=== PATIENT | female | born 1965 | race American Indian/Alaskan Native ===

== ENCOUNTER 2025-04-20 20:17 | Inpatient (IN) | payer MEDICAID, SELFPAY ==
[2025-04-20 20:59] VITALS: BP 125/62; PULSE 102; RESP 20; TEMP 36.7; O2SAT 96
[2025-04-20 21:02] VITALS: BMI 49.8
--- NOTE | 2025-04-20 21:16 | EDNOTE_ITS ---
ED Abdominal Pain RME/HPI General Chief Complaint: Abdominal Pain Stated complaint: ABD PAIN Time seen by provider: 04/20/25 21:28 Arrival date/time: 04/20/25 20:17 RME / HPI RME / HPI narrative: See [facility] for Dr. Knott's HPI Documentation. Related Data Home Medications ?Medication ?Instructions ?Recorded ?Confirmed empagliflozin 25 mg tablet 25 mg PO QDAY 04/21/2503/30 (Jardiance) lisinopril 5 mg tablet 5 mg PO QDAY 04/21/25 metformin 1,000 mg tablet 1,000 mg PO BID 04/21/25 sitagliptin phosphate 100 mg 100 mg PO QDAY 04/21/25 1 06/22/24 tablet (Januvia) Previous Rx's ?Medication ?Instructions ?Recorded ascorbic acid (vitamin C) 250 mg 500 mg (2 x 250 mg) P O BID #60 tabs 04/24/25 tablet (Vitamin C) docusate sodium 100 mg capsule 100 mg PO BID #60 caps 04/24/25 hydrocodone 5 mg-acetaminophen 325 1 tab PO Q6H PRN pa in (scale score 04/24/25 mg tablet 7-10) #15 tabs zinc sulfate 50 mg zinc (220 mg) 220 mg (4.4 x 50 mg z inc (220 mg)) 04/24/25 capsule PO QDAY #30 caps Allergies Allergy/AdvReac Type Severity Reaction Status Date / Time No Known Allergies Allergy Verified 04/20/25 22:39 Review of Systems Review of Systems Systems Reviewed: All systems reviewed, normal except as documented Past Medical History Past Medical History GASTROINTESTINAL: Positive Gastrointestinal Disorders (Umbilical Hernia) ED Exam Narrative Physical exam: See [facility] for Dr. Knott's Physical Exam Documentation. Course Quality Measures none Orders Category Date Time Status COVID-19 Screening Questionnaire NOW Care 04/21/25 02:[address] Screening NOW Care 04/20/25 21:46 Completed Decision to Admit X1 Care 04/21/25 02:00 Completed Saline [Insert IV] NOW Care 04/20/25 21:45 Completed Straight [In and Out Catheter] X1 Care 04/20/25 21:45 Completed Consult to General Surgery Stat Cons 04/21/25 01:[address] abdomen pelvis w con Stat Exams 04/20/25 21:46 Completed US gall bladder Stat Exams 04/20/25 21:46 Completed ABG [Arterial Blood Gas] Stat Lab 04/20/25 23:39 Completed Amylase Stat Lab 04/20/25 21:58 Completed Beta Hydroxybutyrate Stat Lab 04/20/25 21:58 Completed Bilirubin,Direct Stat Lab 04/20/25 21:58 Completed Blood Culture (Lab) Stat Lab 04/20/25 22:27 Results C-Reactive Protein Stat Lab 04/20/25 21:58 Completed CBC Stat Lab 04/20/25 21:58 Completed CMP [Comprehensive Metabolic Panel] Stat Lab 04/20/25 21:58 Completed Hemoglobin A1C [Glycohemoglobin w (eAG)] Stat Lab 04/20/25 21:58 Completed Lactate (Lactic Acid) Stat Lab 04/20/25 21:58 Completed Lactic Acid, 3 HR Stat Lab 04/21/25 01:40 Completed Lipase Stat Lab 04/20/25 21:58 Completed Magnesium Stat Lab 04/20/25 21:58 Completed Procalcitonin Stat Lab 04/20/25 21:58 Completed Sed Rate (ESR) Stat Lab 04/20/25 21:58 Completed TSH [Thyroid Stimulating Hormone] Stat Lab 04/20/25 21:58 Completed UA, C/S IF [Urinalysis, C/S if Indicated] Stat Lab 04/20/25 21:58 Completed VBG [Venous Blood Gas] Stat Lab 04/20/25 21:58 Completed Famotidine Inj [Pepcid Inj] Med 04/20/25 21:45 Discontinued 20 mg IVP X1 ONE Insulin Regular Med 04/20/25 23:19 Discontinued 8 unit IV X1 ONE Ketorolac Inj [Toradol Inj] Med 04/20/25 21:45 Discontinued 30 mg IVP X1 ONE Morphine* Inj Med 04/20/25 21:45 Discontinued 4 mg IV X1 ONE Ondansetron Inj [Zofran Inj] Med 04/20/25 21:45 Discontinued 4 mg IVP X1 ONE Pantoprazole Inj [Protonix Inj] Med 04/20/25 21:45 Discontinued 40 mg IVP X1 ONE Sodium Chloride 0.9% 1000 ml [Ns] 1,000 ml Med 04/20/25 21:45 Discontinued IV 999 mls/hr Sodium Chloride 0.9% 1000 ml [Ns] 1,000 ml Med 04/20/25 23:19 Discontinued IV 999 mls/hr cefTRIAXone/D5w 1gm IV premix [Rocephin/D5w 1gm IV Med 04/20/25 22:56 Discontinued premix] 1 gm in 50 ml IV X1 metroNIDAZOLE/NS 500 MG IVPB [Flagyl 500 mg IV] Med 04/20/25 22:56 Discontinued 500 mg in 100 ml IV X1 Vital Signs Vital signs: Vital Signs Temperature 98.1 F 04/20/25 20:59 Pulse Rate 102 H 04/20/25 20:59 Respiratory Rate 20 04/20/25 20:59 Blood Pressure 125/62 04/20/25 20:59 Pulse Oximetry (%) 96 04/20/25 20:59 Oxygen Delivery Method Room Air 04/20/25 20:59 Abdominal Pain MDM MDM Narrative MDM Narrative:: This section includes all my notes and documentations, including HPI, PE, and ED course. [place] Knott MD HPI: 59 y/o female with Hx of Chronic Umbilical Hernia presents with severe abdominal pain and vomiting x 12 hours. No other complaints. ROS: All negative except as documented in HPI. Physical Exam: General: Alert and oriented. No acute distress when remaining still. Eyes: Conjunctivae and lids clear. ENT: No nasal congestion. Neck: Supple. Heart: RRR. Lungs: No respiratory distress. Good air movement. No rhonchi, wheezing, rales. Abdomen: Soft and nontender. Normal bowel sounds. No distension. No rebound or guarding. Back: No CVA tenderness. Skin: Warm and dry. Neuro: Alert and oriented X 3. I reviewed all diagnostic test results: My review of the Abdomen/Pelvis CT report is: SBO with incarcerated/strangulated bowel in umbilical hernia. My review of the Gallbladder US report is: Cholelithiasis. Blood/urine tests remarkable for WBC 21.7, ESR 62, LA 4.2, and CRP 9.1. At this point, diagnoses include: SBO Incarcerated Hernia Treatment here included: IVF Toradol 30 mg IV Morphine 4 mg IV Zofran 4 mg IV Flagyl 500 mg IV Rocephin 1 G IV I discussed the case with our general surgeon, Dr. Lewis, and our Hospitalist. About the presentation and exam and diagnostics and treatments here. And need of further care in the hospital. Will accept the patient. Sal[place] Knott MD Patient data External records reviewed:: [facility] previous records (No prior ED records available for review.) Clinical information provided by:: patient Social determinants that could affect healthcare access:: none Patient has the following chronic illnesses:: Umbilical Hernia How is presenting disease/condition affected by chronic disease/condition?: exacerbated by Evaluation data The following diagnostics were reviewed and interpreted by me:: lab results and radiology exam(s) Lab and/or radiology exams considered but not ordered:: None Interpretation Summary: I reviewed all diagnostic test results: My review of the Abdomen/Pelvis CT report is: SBO with incarcerated/strangulated bowel in umbilical hernia. My review of the Gallbladder US report is: Cholelithiasis. Blood/urine tests remarkable for WBC 21.7, ESR 62, LA 4.2, and CRP 9.1. Medications / Prescriptions Medications or Prescriptions considered but not ordered:: None Medication administrations:: Medication Administration History Discontinued Medications Acetaminophen (Acetaminophen 325 Mg Tablet) 650 mg PO Q6HR PRN PRN Reason: Fever > 100.4 or pain 1-3 Stop: 05/23/25 00:02 Last Admin: 04/24/25 10:26 Dose: 650 mg Documented By: Admin: 04/23/25 08:31 Dose: 650 mg Documented By: Admin: 04/23/25 00:14 Dose: 650 mg Documented By: DAMON Ascorbic Acid (Ascorbic Acid 250 Mg Tablet) 500 mg PO BID [facility] Stop: 05/21/25 20:59 Last Admin: 04/24/25 08:34 Dose: 500 mg Documented By: Admin: 04/23/25 21:09 Dose: 500 mg Documented By: Admin: 04/23/25 08:28 Dose: 500 mg Documented By: Admin: 04/22/25 20:10 Dose: 500 mg Documented By: Admin: 04/22/25 08:07 Dose: 500 mg Documented By: Admin: 04/21/25 21:44 Dose: 500 mg Documented By: Cefazolin Sodium (Cefazolin Inj 1 Gm Vial) Confirm Administered Dose 3 gm .ROUTE .STK-MED ONE Stop: 04/21/25 12:13 Dexamethasone Sodium Phosphate (Dexamethasone Sod Phos Inj 10 Mg/Ml Vial) Confirm Administered Dose 10 mg .ROUTE .STK-MED ONE Stop: 04/21/25 11:00 Dextrose (Dextrose 50%-Water Inj 50 Ml Syringe) 25 ml IV Q15MIN PRN PRN Reason: BG 50-70 responsive npo pt Stop: 05/21/25 02:02 Dextrose (Dextrose 50%-Water Inj 50 Ml Syringe) 50 ml IV Q15MIN PRN PRN Reason: BG <50 OR BG <70 & pt unresponsive Stop: 05/21/25 02:02 Docusate Sodium (Docusate Sod 100 Mg Capsule) 100 mg PO BID KSENIA; Protocol Stop: 05/21/25 20:59 Last Admin: 04/24/25 08:34 Dose: Not Given Documented By: JACKIE Non-Admin Reason: Patient Refused Admin: 04/23/25 21:09 Dose: 100 mg Documented By: Admin: 04/23/25 08:28 Dose: 100 mg Documented By: Admin: 04/22/25 20:10 Dose: 100 mg Documented By: Admin: 04/22/25 08:12 Dose: Not Given Documented By: JACKIE Non-Admin Reason: Patient Refused Admin: 04/21/25 21:00 Dose: Not Given Documented By: Non-Admin Reason: bm loose 2x Famotidine (Famotidine Inj 10 Mg/Ml Vial 2 Ml) 20 mg IVP X1 ONE Stop: 04/20/25 21:46 Last Admin: 04/20/25 22:55 Dose: 20 mg Documented By: EE Fentanyl Citrate (Fentanyl Cit Inj 50 Mcg/Ml Amp 2ml) 25 mcg IVP Q5M PRN PRN Reason: PAIN SCALE 1-3 (mild Stop: 04/21/25 12:59 Fentanyl Citrate (Fentanyl Cit Inj 50 Mcg/Ml Amp 2ml) Confirm Administered Dose 100 mcg .ROUTE .STK-MED ONE Stop: 04/21/25 10:59 Glucagon (Glucagon Inj 1 Mg Vial) 1 mg IM Q15MIN PRN PRN Reason: BG <70, and no IV access Hydromorphone HCl (Hydromorphone Inj 2 Mg/Ml Vial) 0.4 mg IVP Q5M PRN PRN Reason: PAIN SCALE 7-10 (Severe Stop: 04/21/25 12:59 Sodium Chloride (Ns) 1,000 mls @ 999 mls/hr IV .Q1H1M ONE Stop: 04/20/25 22:45 Last Infusion: 04/21/25 00:05 Dose: Infused Documented By: Admin: 04/20/25 22:55 Dose: 999 mls/hr Documented By: MALIKA Ceftriaxone Sodium/Dextrose (Rocephin/D5w 1gm Iv Premix) 1 gm in 50 mls @ 100 mls/hr IV X1 ONE Stop: 04/20/25 23:25 Last Infusion: 04/20/25 23:47 Dose: Infused Documented By: Admin: 04/20/25 23:17 Dose: 100 mls/hr Documented By: CHEMA Metronidazole (Flagyl 500 Mg Iv) 500 mg in 100 mls @ 100 mls/hr IV X1 ONE Stop: 04/20/25 23:55 Last Infusion: 04/21/25 00:44 Dose: Infused Documented By: Admin: 04/20/25 23:38 Dose: 100 mls/hr Documented By: CHEMA Sodium Chloride (Ns) 1,000 mls @ 999 mls/hr IV .Q1H1M ONE Stop: 04/21/25 00:19 Last Infusion: 04/21/25 00:42 Dose: Infused Documented By: Admin: 04/20/25 23:38 Dose: 999 mls/hr Documented By: CHEMA Piperacillin/Tazobactam/Dextrose (Zosyn) 3.375 gm in 50 mls @ 12.5 mls/hr IV Q8HR [facility]; Protocol Stop: 04/28/25 02:14 Last Admin: 04/24/25 05:09 Dose: 12.5 mls/hr Documented By: Infusion: 04/24/25 01:09 Dose: Infused Documented By: Admin: 04/23/25 21:09 Dose: 12.5 mls/hr Documented By: Infusion: 04/23/25 18:43 Dose: Infused Documented By: Admin: 04/23/25 14:43 Dose: 12.5 mls/hr Documented By: Infusion: 04/23/25 09:02 Dose: Infused Documented By: Admin: 04/23/25 05:02 Dose: 12.5 mls/hr Documented By: Infusion: 04/23/25 01:28 Dose: Infused Documented By: Admin: 04/22/25 21:28 Dose: 12.5 mls/hr Documented By: Infusion: 04/22/25 17:12 Dose: Infused Documented By: Admin: 04/22/25 13:12 Dose: 12.5 mls/hr Documented By: Infusion: 04/22/25 09:16 Dose: Infused Documented By: Admin: 04/22/25 05:16 Dose: 12.5 mls/hr Documented By: Infusion: 04/22/25 01:47 Dose: Infused Documented By: Admin: 04/21/25 21:47 Dose: 12.5 mls/hr Documented By: Admin: 04/21/25 14:10 Dose: Not Given Documented By: CRISTI Non-Admin Reason: Not In Room Sodium Chloride (Ns) 1,000 mls @ 999 mls/hr IV .Q1H1M ONE Stop: 04/21/25 03:08 Last Infusion: 04/21/25 03:40 Dose: Infused Documented By: Admin: 04/21/25 02:33 Dose: 999 mls/hr Documented By: CHEMA Piperacillin/Tazobactam/Dextrose (Zosyn) 3.375 gm in 50 mls @ 100 mls/hr IV X1 ONE; Protocol Stop: 04/21/25 02:44 Last Infusion: 04/21/25 03:05 Dose: Infused Documented By: Admin: 04/21/25 02:35 Dose: 100 mls/hr Documented By: CHEMA Acetaminophen (Ofirmev Inj) Confirm Administered Dose 100 mls @ ud IV .STK-MED ONE Stop: 04/21/25 12:07 Insulin Degludec (Insulin Degludec 5 Unit/0.05 Ml (Per 5 Units)) 10 unit SC X1 ONE Stop: 04/21/25 03:41 Last Admin: 04/21/25 04:30 Dose: 10 unit Documented By: SPENCER Co-signed By: Insulin Human Lispro (Insulin Lispro (Admelog) 1 Unit/0.01 Ml Unit) 0 unit SC Q6H KSENIA; Protocol Stop: 05/21/25 02:14 Last Admin: 04/22/25 07:46 Dose: Not Given Documented By: LS Non-Admin Reason: Per Protocol Admin: 04/22/25 02:15 Dose: Not Given Documented By: ME Non-Admin Reason: Per Protocol Admin: 04/21/25 19:57 Dose: 1 unit Documented By: Co-signed By: LEANDRA Admin: 04/21/25 14:15 Dose: Not Given Documented By: CRISTI Non-Admin Reason: Not In Room Admin: 04/21/25 07:52 Dose: 2 unit Documented By: CRISTI Co-signed By: marcy Admin: 04/21/25 02:41 Dose: 2 unit Documented By: CHEMA Co-signed By: SE Insulin Human Lispro (Insulin Lispro (Admelog) 1 Unit/0.01 Ml Unit) 0 unit SC ACHS [facility]; Protocol Stop: 05/22/25 11:29 Last Admin: 04/24/25 11:44 Dose: Not Given Documented By: LS Non-Admin Reason: Per Protocol Admin: 04/24/25 07:33 Dose: Not Given Documented By: LS Non-Admin Reason: Per Protocol Admin: 04/23/25 20:37 Dose: Not Given Documented By: CG Non-Admin Reason: Per Protocol Admin: 04/23/25 17:30 Dose: Not Given Documented By: MR Non-Admin Reason: Per Protocol Admin: 04/23/25 11:56 Dose: Not Given Documented By: MR Non-Admin Reason: Per Protocol Admin: 04/23/25 07:44 Dose: Not Given Documented By: MR Non-Admin Reason: Per Protocol Admin: 04/22/25 20:06 Dose: 1 unit Documented By: DAMON Co-signed By: JOSÉ LUIS Admin: 04/22/25 17:00 Dose: Not Given Documented By: LS Non-Admin Reason: Per Protocol Admin: 04/22/25 11:29 Dose: Not Given Documented By: LS Non-Admin Reason: Per Protocol Insulin Human Regular (Insulin Hum Regular 1 Unit/0.01 Ml (Per Unit)) 8 unit IV X1 ONE Stop: 04/20/25 23:20 Last Admin: 04/20/25 23:37 Dose: 8 unit Documented By: CHEMA Co-signed By: EE Ketorolac Tromethamine (Ketorolac Inj 30 Mg/Ml Vial) 30 mg IVP X1 ONE Stop: 04/20/25 21:46 Last Admin: 04/20/25 22:55 Dose: 30 mg Documented By: EE Ketorolac Tromethamine (Ketorolac Inj 30 Mg/Ml Vial) Confirm Administered Dose 30 mg .ROUTE .STK-MED ONE Stop: 04/21/25 11:00 Magnesium Hydroxide (Milk Of Magnesia Susp 30 Ml Udc) 30 ml PO X1 ONE; Protocol Stop: 04/23/25 10:16 Last Admin: 04/23/25 12:24 Dose: 30 ml Documented By: MR Midazolam HCl (Midazolam Inj 1 Mg/Ml Vial 2 Ml) Confirm Administered Dose 2 mg .ROUTE .STK-MED ONE Stop: 04/21/25 11:00 Morphine Sulfate (Morphine Sulf Inj 4 Mg/Ml Vial) 4 mg IV X1 ONE Stop: 04/20/25 21:46 Last Admin: 04/20/25 22:55 Dose: 4 mg Documented By: EE Morphine Sulfate (Morphine Sulf Inj 4 Mg/Ml Vial) 2 mg IVP Q2H PRN PRN Reason: PAIN SCALE 4-10(Mod-Sev Stop: 04/26/25 02:02 Last Admin: 04/22/25 13:39 Dose: 2 mg Documented By: Admin: 04/22/25 10:40 Dose: 2 mg Documented By: Admin: 04/22/25 08:06 Dose: 2 mg Documented By: Admin: 04/22/25 02:02 Dose: 2 mg Documented By: Admin: 04/21/25 06:05 Dose: 2 mg Documented By: SPENCER Morphine Sulfate (Morphine Sulf Inj 4 Mg/Ml Vial) 3 mg IV Q5M PRN PRN Reason: PAIN SCALE 4-6 (Moderate Stop: 04/21/25 12:59 Ondansetron HCl (Ondansetron Inj 2 Mg/Ml Inj 2 Ml) 4 mg IVP X1 ONE; Protocol Stop: 04/20/25 21:46 Last Admin: 04/20/25 22:54 Dose: 4 mg Documented By: EE Ondansetron HCl (Ondansetron Inj 2 Mg/Ml Inj 2 Ml) 4 mg IVP Q6H PRN; Protocol PRN Reason: NAUSEA OR VOMITING Stop: 05/21/25 02:02 Last Admin: 04/21/25 04:26 Dose: 4 mg Documented By: SPENCER Ondansetron HCl (Ondansetron Inj 2 Mg/Ml Inj 2 Ml) 4 mg IVP X1 ONE Stop: 04/21/25 11:00 Last Admin: 04/21/25 14:22 Dose: 4 mg Documented By: LJ Ondansetron HCl (Ondansetron Inj 2 Mg/Ml Inj 2 Ml) Confirm Administered Dose 4 mg .ROUTE .STK-MED ONE Stop: 04/21/25 11:00 Pantoprazole Sodium (Pantoprazole Inj 40 Mg Vial) 40 mg IVP X1 ONE Stop: 04/20/25 21:46 Last Admin: 04/20/25 22:54 Dose: 40 mg Documented By: MALIKA Phenylephrine HCl (Phenylephrine Inj In Ns 100 Mcg/Ml 10 Ml Syringe) Confirm Administered Dose 1,000 mcg .ROUTE .STK-MED ONE Stop: 04/21/25 12:42 Propofol (Propofol Inj 10 Mg/Ml Vial 20 Ml) Confirm Administered Dose 200 mg IV .STK-MED ONE Stop: 04/21/25 10:59 Rocuronium [place] (Rocuronium Inj 10 Mg/Ml Vial 10 Ml) Confirm Administered Dose 100 mg .ROUTE .STK-MED ONE Stop: 04/21/25 11:00 Sennosides (Senna Tablet) 1 tab PO X1 ONE; Protocol Stop: 04/23/25 09:41 Last Admin: 04/23/25 12:24 Dose: 1 tab Documented By: Sugammadex Sodium (Sugammadex Inj 100 Mg/Ml 2ml Vial) Confirm Administered Dose 200 mg .ROUTE .STK-MED ONE Stop: 04/21/25 11:00 Zinc Sulfate (Zinc Sulfate 220 Mg Capsule) 220 mg PO QDAY KSENIA Stop: 05/22/25 08:59 Last Admin: 04/24/25 08:34 Dose: 220 mg Documented By: Admin: 04/23/25 08:28 Dose: 220 mg Documented By: Admin: 04/22/25 08:07 Dose: 220 mg Documented By: JACKIE Treatment here included: IVF Toradol 30 mg IV Morphine 4 mg IV Zofran 4 mg IV Flagyl 500 mg IV Rocephin 1 G IV Consultations Consultation(s) initiated? (list below): Yes Consultation #1 (Physician, Specialty, Details): I discussed the case with our general surgeon, Dr. Lewis, and our Hospitalist. About the presentation and exam and diagnostics and treatments here. And need of further care in the hospital. Will accept the patient. Diagnosis Differential diagnosis abdominal pain: acute appendicitis, calculus of kidney, constipation, diverticulitis, endometriosis, gastroenteritis, pancreatitis and small bowel obstruction Most likely diagnosis given after review of the tests above:: SBO Incarcerated Hernia Admission Indicated Admission indicated?: indicated Explain why admission is indicated or not indicated:: SBO Incarcerated Hernia Admission Request Was there a request for admission?: Yes Admission Attestation Admission request attestation: Discussed case with Hospitalist service regarding admission. Discussed patients ED course, exam findings, labs, and radiology results. Agreed to accept the patient for admission. Disposition Plan Disposition Plan: Admit Discharge Plan Plan Patient Disposition: Admit Acute Care w/in Hospital Problem List Clinical Impression: SBO (small bowel obstruction), Incarcerated hernia Patient/Caregiver Discharge Instructions Discharge Activity: activity as tolerated
--- NOTE | 2025-04-20 21:46 | XR_ITS ---
Examination: Abdomen sonogram, Limited Date and time of exam: April 20, 2025, 1012 hours INDICATIONS: Right upper abdominal pain and tenderness nausea vomiting beginning 2 days ago Technique: Real-time adams scale transabdominal sonographic images of the upper abdomen obtained. Findings: Multiple gallstones Gallbladder wall 0.5 cm Common bile duct 0.2 cm Pancreatic head 2.4 cm Liver 16 cm fatty infiltration Normal hepatopetal portal venous flow Patent IVC IMPRESSION: Cholelithiasis Abnormally thickened gallbladder wall, consider HIDA scan or MRCP follow-up to confirm cholecystitis
--- NOTE | 2025-04-20 21:46 | XR_ITS ---
Examination: CT abdomen with intravenous contrast CT pelvis with intravenous contrast 2-D coronal reconstructions 2-D sagittal reconstructions Date and time of exam: April 21, 2025, 0019 hours INDICATIONS: Severe abdominal pain with nausea onset today. CTDI: vol (mGy) 16.8 DLP: (mGycm) 970 Technique: Multiple axial sections of the abdomen and pelvis have been obtained. 64 slice high-resolution scanner used. 3 mm axial sections have been obtained, post intravenous injection 60 cc [id number] 2-D sagittal, coronal reconstructions obtained. Low dose protocols were performed. One or more of the following dose reduction techniques were used; automated exposure control, adjustment of the mA and/or KV according to patient size, use of iterative reconstruction technique. Findings: Cirrhosis, liver nodular in contour Splenomegaly Cholelithiasis No pancreatic mass No renal or ureteral calculi Small bowel obstruction, multiple small bowel loops incarcerated in umbilical hernia defect, large hernia sac No pelvic mass Urinary bladder intact Advanced degenerative disc disease L5-S1 Colonic diverticulosis, mild inflammation about the diverticula in the sigmoid region, the inflamed colon is immediately adjacent to the upper margin of the urinary bladder IMPRESSION: Cirrhosis, splenomegaly Cholelithiasis Small bowel obstruction secondary to incarcerated small bowel in an umbilical hernia defect Suspicious for mild sigmoid diverticulitis, possible fistulous communication between the diverticula and the bladder, clinical correlation advised
[2025-04-20 22:10] LABS: Collection Type, Urine Clean Catch
[2025-04-20 22:11] LABS: Base Excess, Venous 2 (-3-3); Basophils # (Auto) 0.1 Thou/mm3 (0.0-0.2); Basophils % (Auto) 1 % (0-2.5); Eosinophils # (Auto) 0.0 Thou/mm3 (0.0-0.5); Eosinophils % (Auto) 0 % (0-10); Hematocrit 47.1 % (36.0-46.0); Hemoglobin 16.0 g/dL (12.0-16.0); Immature Granulocytes Auto 0.09 Thou/mm3 (0.00-0.00); Lymphocytes # (Auto) 2.5 Thou/mm3 (1.0-4.8); Lymphocytes % (Auto) 11 % (10-50); Mean Corpuscular HGB Conc 34.0 g/dl (31.0-37.0); Mean Corpuscular Hemoglobin 30.4 pg (25.0-35.0); Mean Corpuscular Volume 90 fL (80-100); Monocytes # (Auto) 1.3 Thou/mm3 (0.0-0.8); Monocytes % (Auto) 6 % (0-12); Neutrophils # (Auto) 17.7 Thou/mm3 (1.8-7.7); Neutrophils % (Auto) 82 % (37-80); Nucleated Red Blood Cell # 0.00 Thou/mm3 (0.00-0.00); Nucleated Red Blood Cell % 0 /100 WBC (0); O2 Saturation, Venous 74 % (96-97); PCO2, Venous 43 mmHg (36-56); PO2, Venous 40 mmHg (15-58); Platelet Count 336 Thou/mm3 (140-440); RDW Standard Deviation 41.7 fL (36.4-46.3); Red Blood Count 5.26 Miln/mm3 (4.00-5.20); White Blood Count 21.7 Thou/mm3 (3.6-11.0); pH, Venous 7.41 (7.33-7.66)
[2025-04-20 22:20] LABS: Beta Hydroxybutyrate 1.2 mmol/L (<0.6)
[2025-04-20 22:26] LABS: Glucose Estimated Average 209 mg/dL (80-131); Hemoglobin A1C 8.9 % Hgb (4.8-6.0)
[2025-04-20 22:29] LABS: Bacteria,Urine Rare; Bilirubin,Urine Negative (Negative); Blood,Urine Negative (Negative); Budding Yeast,Urine Present; Clarity,Urine Clear (Clear/Hazy); Color,Urine Yellow (Lt Yel-Yel); Culture Indicated,Urine Not Indicated; Glucose, Urine 4+ (Negative); Ketones,Urine 2+ (Negative); Leukocyte Esterase,Urine Negative (Negative); Nitrite,Urine Negative (Negative); PH,Urine 6.0 (5.0-7.0); Protein,Urine Negative (Neg - Trace); RBC,Urine 14 /hpf (0-3); Specific Gravity,Urine 1.044 (1.001-1.035); Squamous Epithelial Cell,Urine 2 /hpf (0-5); Urobilinogen,Urine Negative mg/dL (0.0-1.0); WBC,Urine 3 /hpf (0-5)
[2025-04-20 22:36] LABS: Lactate (Lactic Acid) 4.2 mMol/L (0.4-2.0)
[2025-04-20 22:39] LABS: Sed Rate (ESR) 62 mm/hr (0-30)
[2025-04-20 22:43] LABS: Alanine Aminotransferase 23 U/L (10-49); Albumin, Serum 5.1 gm/dL (3.5-5.0); Albumin/Globulin Ratio 1.3 (1.2-2.2); Alkaline Phosphatase 106 U/L (46-116); Amylase 52 U/L (30-118); Anion Gap 19 (7-16); Aspartate Amino Transferase 34 U/L (0-34); BUN/Creatinine Ratio 18 Ratio (12-20); Bilirubin,Direct 0.2 mg/dL (0.0-0.3); Bilirubin,Total 0.5 mg/dL (0.3-1.2); Blood Urea Nitrogen 21 mg/dL (9-23); Calcium 10.1 mg/dL (8.3-10.6); Calcium (Corrected) 10.1 mg/dL (8.5-10.1); Carbon Dioxide 24.6 mMol/L (20.0-31.0); Chloride 97 mMol/L (98-107); Creatinine (Component) 1.2 mg/dL (0.6-1.3); Estimated Creatinine Clearance 58.6 mL/min (>60); Globulin 4.0 gm/dL (2.3-3.5); Glucose 326 mg/dL (74-106); Lipase 35 U/L (12-53); Magnesium 2.4 mg/dL (1.6-2.6); Osmolality,Calculated 297 (275-295); Potassium 4.5 mMol/L (3.4-5.1); Sodium 141 mMol/L (136-145); Thyroid Stimulating Hormone 4.17 uIU/mL (0.55-4.78); Total Protein 9.1 gm/dL (5.7-8.2); eGFR 52 See Note
[2025-04-20 22:51] LABS: C-Reactive Protein 2.5 mg/dL (0.0-0.9); Procalcitonin 0.14 ng/ml (0.0-0.49)
[2025-04-20] MEDS: ONDANSETRON INJ 2 MG/ML INJ 2 ML 4 MG IVP (22:54)
[2025-04-20] MEDS: MORPHINE SULF INJ 4 MG/ML VIAL IV (22:55)
[2025-04-20] MEDS: SODIUM CHLORIDE 0.9% 1000 ML 1,000 ML 999 ML IV ×2 (22:55→23:38)
[2025-04-20] MEDS: FAMOTIDINE INJ 10 MG/ML VIAL 2 ML 20 MG IVP (22:55)
[2025-04-20] MEDS: KETOROLAC INJ 30 MG/ML VIAL IVP (22:55)
[2025-04-20 23:02] VITALS: BP 125/67; PULSE 103; RESP 18; TEMP 37.1; O2SAT 89
[2025-04-20 23:12] VITALS: PULSE 99; RESP 20; O2SAT 96
[2025-04-20] MEDS: cefTRIAXone/D5w 1gm IV premix 1 GM/50 ML BAG IV (23:17)
[2025-04-20] MEDS: INSULIN HUM REGULAR 1 UNIT/0.01 ML (PER UNIT) 8 UNIT IV (23:37)
[2025-04-20] MEDS: metroNIDAZOLE/NS 500 MG IVPB 500 MG/100 ML BAG 100 MG IV (23:38)
[2025-04-21] VITALS (17 sets, daily range): BP systolic 98–137; BP diastolic 61–92; PULSE 86–119; RESP 15–96; TEMP 36–36.9; O2SAT 94–99; BMI 51.0; BMI 51.2
[2025-04-21 00:03] LABS: Base Excess 1 (-3-3); HCO3 26 mEq/L (20-26); Inspired Oxygen, FIO2 32 %; O2 Saturation 95 % (91-98); PCO2 44 mmHg (32.0-48.0); PO2 77 mmHg (83-108); pH, Arterial 7.38 (7.35-7.45)
[2025-04-21 00:04] LABS: Allen Test Performed/OK; Inspired O2, VO2 Liters 3 L/min; Puncture Site Right Radial
--- NOTE | 2025-04-21 01:14 | PRELIM_ITS ---
CT scan of the abdomen and pelvis with intravenous contrast (axial sections with sagittal and coronal reformats) April 21, 2025 at 0016 hours Clinical History: Severe abdominal pain. Comparison: None available at the time of this report. Findings: Mild bronchiectasis. Bilateral lower lobes atelectasis. The pancreas, kidneys and adrenals are unremarkable. Gallstones without CT evidence of acute cholecystitis. No biliary duct dilation. Splenomegaly with clinical diameter of 13.7 cm. Mild irregular liver margins. Dilated small bowel loops measuring up to 4.3 cm with air-fluid levels within an transition point at the level of a bowel containing anterior abdominal hernia. No evidence of appendicitis. There is no mesenteric or retroperitoneal adenopathy. The urinary bladder is unremarkable. There is no free fluid or free air. Degenerative changes of the imaged portions of the spine. Chronic multilevel disc disease. No acute fractures. Focal thickening of the sigmoid colon associated with peripheral fat stranding, no perforation, no collections, no fat plane between the urinary bladder and the inflamed sigmoid colon. The uterus and ovaries are within normal limits. Impression: 1. Small bowel obstruction with transition point at the level of the incarcerated/strangulated bowel containing anterior abdominal hernia. Surgical consult is recommended. 2. Diverticulitis of the sigmoid colon with possible colovesicular fistula. 3. Probable cirrhosis. 4. Mild splenomegaly. 5. Bronchiectasis. Discussion Details: Results verbally communicated to : Dr. Knott at 01:01 AM 04/21/2025 Report Electronically Signed By: Aiden Velasco 04/21/2025 1:13:11 AM [EST]
[2025-04-21 01:30] LABS: Reflex Lactate? Y
[2025-04-21 01:49] LABS: Lactic Acid, 3 HR 1.8 mMol/L (0.4-2.0)
--- NOTE | 2025-04-21 02:10 | PD.RESHP ---
Documentation for date of: 04/21/25 HPI History of Present Illness Chief complaint: Abdominal pain and nausea History of present illness: 59-year-old female with past medical history of hypertension, DM2, and umbilical hernia comes into the ED with chief complaints of abdominal pain and nausea over the last 24 hours. Patient states that she has had her umbilical hernia for many years now and she is not seen a doctor for it because she was afraid of surgery and she was trying to avoid it at this time. She stated that since yesterday morning she was feeling unwell and was having a lot of pain and it became unbearable therefore she decided to come to the ER. Patient also stated that she had multiple episodes of vomiting, but no gross blood seen in the vomit. She also stated that her last bowel movement was 04/19/2025 and there was no blood. Otherwise she has no other complaints at this time and denies any chest pain, burning sensation urination, headache, dizziness, cough, or blood in the stools. ED course: Initially patient came in afebrile and normotensive. Initial results were relevant for leukocytosis, high anion gap without metabolic acidosis, hyperglycemia, lactic acidosis, elevated CRP and elevated hydroxybutyrate butyrate. Patient's urine also shows some ketones and some rare bacteria. Initial imaging included gallbladder ultrasound which showed some cholelithiasis and some thickened gallbladder wall, common bile duct was not dilated. Patient's abdomen/pelvis CT with contrast also showed SBO with an incarcerated bowel containing anterior abdominal hernia as well as some diverticulitis. In the ED patient received ceftriaxone and metronidazole as well as 2 L of IV fluids and insulin 8 units x 1. ED physician also spoke with general surgeon given incarcerated hernia and general surgeon stated to admit the patient and keep patient n.p.o. for possible surgical intervention. PMH: Hypertension, DM2, and umbilical hernia Social Hx: Denies any drugs, smoking, alcohol Surgical Hx: None Allergies: NKDA Review of Systems Review of Systems Systems Reviewed: All systems reviewed, normal except as documented Past Medical History Past Medical History Comments PMH COMMENT: PMH: Hypertension, DM2, and umbilical hernia Social Hx: Denies any drugs, smoking, alcohol Surgical Hx: None Allergies: NKDA Exam Vital Signs Temp Pulse Resp BP Pulse Ox O2 Del Method O2 Flow Rate 98.7 F 99 20 125/67 96 Nasal Cannula 2 04/20/25 23:02 04/20/25 23:12 04/20/25 23:12 04/20/25 23:02 04/20/25 23:12 04/20/25 23:12 04/20/25 23:12 Narrative Exam Gen: A&O X 3, mild discomfort due to pain, obese HEENT: NCAT, EOMI, Pupils reactive PHILIP, not icteric. External ears normal. No rhinorrhea. Moist mucous membranes. Neck: Supple, full range of motion, no observable masses, No meningeal sign. Lungs: No Respiratory distress, clear bilateral. CV: RRR, no murmurs. Abdomen: distended and firm, mild tenderness on L side. Non reducible umbilical hernia with mild pain with palpation. MSK: No joint swelling, no redness, peripheral pulses presents, no peripheral edema, good capillary refill. Skin: No rashes, petechiae, lesions. Neuro: No focal neurological deficits appreciated, sensory and motor intact. Psych: Anxious appearing Results: Labs 04/20/25 21:58 04/21/25 01:40 Labs: Short CBC 04/20/25 Range/Units 21:58 WBC 21.7 H (3.6-11.0) Thou/mm3 Hgb 16.0 (12.0-16.0) g/dL Hct 47.1 H (36.0-46.0) % Plt Count 336 (140-440) Thou/mm3 BMP 04/20/25 21:58 Sodium 141 Potassium 4.5 Chloride 97 L Carbon Dioxide 24.6 BUN 21 Creatinine 1.2 Glucose 326 H Calcium 10.1 Liver Function 04/20/25 Range/Units 21:58 Total Bilirubin 0.5 (0.3-1.2) mg/dL Direct Bilirubin 0.2 (0.0-0.3) mg/dL AST 34 (0-34) U/L ALT 23 (10-49) U/L Alkaline Phosphatase 106 (46-116) U/L Albumin 5.1 H (3.5-5.0) gm/dL Urine 04/20/25 Range/Units 21:58 Urine Color Yellow (Lt Yel-Yel) Urine Clarity Clear (Clear/Hazy) Urine pH 6.0 (5.0-7.0) Ur Specific [place] 1.044 H (1.001-1.035) Urine Protein Negative (Neg - Trace) Urine Glucose (UA) 4+ A (Negative) ABG Interpretation ABG results: 04/20/25 04/20/25 21:58 23:39 ABG pH 7.38 ABG pCO2 44 ABG pO2 77 L ABG HCO3 26 ABG O2 Saturation 95 ABG Base Excess 1 VBG pH 7.41 VBG pCO2 43 VBG pO2 40 VBG Base Excess 2 Quality Measures Quality Measures none Medications Home Medications and Allergies Home Medications ?Medication ?Instructions ?Recorded ?Confirmed ?Type empagliflozin 25 mg tablet 25 mg PO QDAY 04/21/25 04/21/25 History (Jardiance) lisinopril 5 mg tablet 5 mg PO QDAY 04/21/25 04/21/25 History metformin 1,000 mg tablet 1,000 mg PO BID 04/21/25 04/21/25 History sitagliptin phosphate 100 mg 100 mg PO QDAY 04/21/25 04/21/25 History tablet (Januvia) Allergies Allergy/AdvReac Type Severity Reaction Status Date / Time No Known Allergies Allergy Verified 04/20/25 22:39 Visit Medications Dextrose (Dextrose 50%-Water Inj 50 Ml Syringe) 25 ml IV Q15MIN PRN PRN Reason: BG 50-70 responsive npo pt Stop: 05/21/25 02:02 Dextrose (Dextrose 50%-Water Inj 50 Ml Syringe) 50 ml IV Q15MIN PRN PRN Reason: BG <50 OR BG <70 & pt unresponsive Stop: 05/21/25 02:02 Glucagon (Glucagon Inj 1 Mg Vial) 1 mg IM Q15MIN PRN PRN Reason: BG <70, and no IV access Piperacillin/Tazobactam/Dextrose (Zosyn) 3.375 gm in 50 mls @ 100 mls/hr IV Q6H KSENIA; Protocol Stop: 04/28/25 02:14 Sodium Chloride (Ns) 1,000 mls @ 999 mls/hr IV .Q1H1M ONE Stop: 04/21/25 03:08 Insulin Human Lispro (Insulin Lispro (Admelog) 1 Unit/0.01 Ml Unit) 0 unit SC Q6H KSENIA; Protocol Stop: 05/21/25 02:14 Morphine Sulfate (Morphine Sulf Inj 4 Mg/Ml Vial) 2 mg IVP Q2H PRN PRN Reason: PAIN SCALE 4-10(Mod-Sev Stop: 04/26/25 02:02 Ondansetron HCl (Ondansetron Inj 2 Mg/Ml Inj 2 Ml) 4 mg IVP Q6H PRN; Protocol PRN Reason: NAUSEA OR VOMITING Stop: 05/21/25 02:02 Discontinued Medications Famotidine (Famotidine Inj 10 Mg/Ml Vial 2 Ml) 20 mg IVP X1 ONE Stop: 04/20/25 21:46 Last Admin: 04/20/25 22:55 Dose: 20 mg Sodium Chloride (Ns) 1,000 mls @ 999 mls/hr IV .Q1H1M ONE Stop: 04/20/25 22:45 Last Infusion: 04/21/25 00:05 Dose: Infused Ceftriaxone Sodium/Dextrose (Rocephin/D5w 1gm Iv Premix) 1 gm in 50 mls @ 100 mls/hr IV X1 ONE Stop: 04/20/25 23:25 Last Infusion: 04/20/25 23:47 Dose: Infused Metronidazole (Flagyl 500 Mg Iv) 500 mg in 100 mls @ 100 mls/hr IV X1 ONE Stop: 04/20/25 23:55 Last Infusion: 04/21/25 00:44 Dose: Infused Sodium Chloride (Ns) 1,000 mls @ 999 mls/hr IV .Q1H1M ONE Stop: 04/21/25 00:19 Last Infusion: 04/21/25 00:42 Dose: Infused Insulin Human Regular (Insulin Hum Regular 1 Unit/0.01 Ml (Per Unit)) 8 unit IV X1 ONE Stop: 04/20/25 23:20 Last Admin: 04/20/25 23:37 Dose: 8 unit Ketorolac Tromethamine (Ketorolac Inj 30 Mg/Ml Vial) 30 mg IVP X1 ONE Stop: 04/20/25 21:46 Last Admin: 04/20/25 22:55 Dose: 30 mg Morphine Sulfate (Morphine Sulf Inj 4 Mg/Ml Vial) 4 mg IV X1 ONE Stop: 04/20/25 21:46 Last Admin: 04/20/25 22:55 Dose: 4 mg Ondansetron HCl (Ondansetron Inj 2 Mg/Ml Inj 2 Ml) 4 mg IVP X1 ONE; Protocol Stop: 04/20/25 21:46 Last Admin: 04/20/25 22:54 Dose: 4 mg Pantoprazole Sodium (Pantoprazole Inj 40 Mg Vial) 40 mg IVP X1 ONE Stop: 04/20/25 21:46 Last Admin: 04/20/25 22:54 Dose: 40 mg Assessment & Plan Plan 59-year-old female with past medical history of hypertension, DM2, and umbilical hernia was admitted to the hospital on 04/21/2025 due to incarcerated umbilical hernia as well as hyperglycemia. #Incarcerated umbilical hernia #SBO 2/2 above #Intractable nausea and vomiting 2/2 above Patient came in with complaints of abdominal pain and nausea with vomiting for the past day. Patient does have a history of umbilical hernia for the past few years and has not had medical attention for this. Patient is abdomen/post CT with contrast showed an SBO with incarcerated bowel containing anterior abdominal hernia and some diverticulitis. Patient CRP was elevated at 2.5, ESR 62, and WBCs were 21.7 Patient received metronidazole and Rocephin in the ER as well as 2 L of IV fluids. Plan: IV Zosyn 3.375 gm q6hrs Additional 1 L of IV fluids N.p.o. Blood cultures ordered General Surgery consulted, awaiting evaluation for possible surgical procedure #Uncontrolled DM2 #Hyperglycemia Patient's A1c was 8.9 Blood glucose was 326 and some ketones in the urine. Patient's anion gap was 19, but patient also had lactic acidosis with which could have contributed to patient's anion gap as patient did not have metabolic acidosis. Beta-hydroxybutyrate was 1.2 Insulin 8 units x 1 in the ER Plan: Degludec 10 units x1 ISS every 6 hours Additional IV fluids Repeat renal function panel to ensure that patient is not progressing into DKA Hypoglycemia protocol ordered #Lactic acidosis, resolved #High anion gap Patient's anion gap was 19 and patient's lactic acid was 4.2 initially Patient lactic acid did downtrend to 1.8 after 2 L of IV fluids. Plan: Will repeat renal function panel to assess anion gap and ensure the patient is not going to metabolic acidosis and has not progressed into DKA #Cholelithiasis #Cholecystitis? Patient's clinical picture of abdominal pain along with nausea could be indicative of cholecystitis, but given that patient does have an incarcerated hernia patient's clinical picture is due to this. Patient's ultrasound gallbladder showed cholelithiasis as well as gallbladder wall thickening and CBD was 0.2 cm. Plan: There is no IVF Zosyn Will follow-up on morning labs General Surgery consulted, appreciate commendations Disposition: Patient admitted to med/tele. Diet: NPO GI prophylaxis: not indicated DVT prophylaxis: SCD given possible surgical procedure Code: Full Case disclosed with Attending Dr. Rosie Navas PGY2 Disclaimer: Even though this this note was dictated by speech recognition and even though it was carefully revised there may still be minor errors in impregnator carbon products due to voice recognition software. Attending Provider Attestation/Addendum I or my resident physicians have discussed care with the ED physician and I have made the decision to admit. I have discussed and was present for the essential components of the history, physical examination, diagnosis, and treatment plan with the resident. I agree with the patient's care as documented by the resident and amended herein by me. Jarred Velez, DO. Although this document has been carefully reviewed, there may still be some phonetic and other typographical errors. These errors are purely grammatical due to imperfections in the software program and should not be construed in any way to compromise the substance of the patient's medical care during this visit.
[2025-04-21] MEDS: SODIUM CHLORIDE 0.9% 1000 ML 1,000 ML 999 ML IV (02:33)
[2025-04-21] MEDS: PIPER/TAZO 3.375 GM PREMIX 3.375 GM/50 ML BAG IV ×2 (02:35→21:47)
[2025-04-21] MEDS: INSULIN LISPRO (AdmeLOG) 1 UNIT/0.01 ML UNIT SC ×3 (02:41→19:57)
[2025-04-21 02:52] LABS: Base Excess, Venous 1 (-3-3); O2 Saturation, Venous 87 % (96-97); PCO2, Venous 40 mmHg (36-56); PO2, Venous 53 mmHg (15-58); pH, Venous 7.41 (7.33-7.66)
[2025-04-21 02:55] LABS: Albumin, Serum 4.1 gm/dL (3.5-5.0); Anion Gap 14 (7-16); BUN/Creatinine Ratio 17 Ratio (12-20); Blood Urea Nitrogen 15 mg/dL (9-23); Calcium 8.6 mg/dL (8.3-10.6); Calcium (Corrected) 8.6 mg/dL (8.5-10.1); Carbon Dioxide 23.2 mMol/L (20.0-31.0); Chloride 106 mMol/L (98-107); Creatinine (Component) 0.9 mg/dL (0.6-1.3); Estimated Creatinine Clearance 78.2 mL/min (>60); Glucose 257 mg/dL (74-106); Osmolality,Calculated 294 (275-295); Phosphorous 4.1 mg/dL (2.4-5.1); Potassium 4.0 mMol/L (3.4-5.1); Sodium 143 mMol/L (136-145); eGFR > 60 See Note
[2025-04-21] MEDS: ONDANSETRON INJ 2 MG/ML INJ 2 ML 4 MG IVP ×2 (04:26→14:22)
[2025-04-21] MEDS: INSULIN DEGLUDEC 5 UNIT/0.05 ML (PER 5 UNITS) 10 UNIT SC (04:30)
[2025-04-21] MEDS: MORPHINE SULF INJ 4 MG/ML VIAL 2 MG IVP (06:05)
[2025-04-21 07:42] LABS: Basophils # (Auto) 0.1 Thou/mm3 (0.0-0.2); Basophils % (Auto) 1 % (0-2.5); Eosinophils # (Auto) 0.0 Thou/mm3 (0.0-0.5); Eosinophils % (Auto) 0 % (0-10); Hematocrit 42.3 % (36.0-46.0); Hemoglobin 14.3 g/dL (12.0-16.0); Immature Granulocytes Auto 0.04 Thou/mm3 (0.00-0.00); Lymphocytes # (Auto) 0.7 Thou/mm3 (1.0-4.8); Lymphocytes % (Auto) 6 % (10-50); Mean Corpuscular HGB Conc 33.8 g/dl (31.0-37.0); Mean Corpuscular Hemoglobin 31.0 pg (25.0-35.0); Mean Corpuscular Volume 92 fL (80-100); Monocytes # (Auto) 0.8 Thou/mm3 (0.0-0.8); Monocytes % (Auto) 7 % (0-12); Neutrophils # (Auto) 10.0 Thou/mm3 (1.8-7.7); Neutrophils % (Auto) 86 % (37-80); Nucleated Red Blood Cell # 0.00 Thou/mm3 (0.00-0.00); Nucleated Red Blood Cell % 0 /100 WBC (0); Platelet Count 256 Thou/mm3 (140-440); RDW Standard Deviation 43.8 fL (36.4-46.3); Red Blood Count 4.61 Miln/mm3 (4.00-5.20); White Blood Count 11.7 Thou/mm3 (3.6-11.0)
[2025-04-21 08:02] LABS: Alanine Aminotransferase 17 U/L (10-49); Albumin, Serum 4.4 gm/dL (3.5-5.0); Albumin/Globulin Ratio 1.2 (1.2-2.2); Alkaline Phosphatase 84 U/L (46-116); Anion Gap 12 (7-16); Aspartate Amino Transferase 25 U/L (0-34); BUN/Creatinine Ratio 21 Ratio (12-20); Bilirubin,Total 0.5 mg/dL (0.3-1.2); Blood Urea Nitrogen 19 mg/dL (9-23); Calcium 9.0 mg/dL (8.3-10.6); Calcium (Corrected) 9.0 mg/dL (8.5-10.1); Carbon Dioxide 25.0 mMol/L (20.0-31.0); Cardiac Risk Estimate 4.6 RATIO (3.7-5.6); Chloride 108 mMol/L (98-107); Cholesterol 160 mg/dL (132-200); Creatinine (Component) 0.9 mg/dL (0.6-1.3); Estimated Creatinine Clearance 79.3 mL/min (>60); Globulin 3.6 gm/dL (2.3-3.5); Glucose 241 mg/dL (74-106); HDL Cholesterol 35 mg/dL (40-60); LDL Cholesterol,Calculated 93 mg/dL (0-130); Osmolality,Calculated 298 (275-295); Potassium 4.3 mMol/L (3.4-5.1); Sodium 145 mMol/L (136-145); Total Protein 8.0 gm/dL (5.7-8.2); Triglycerides 160 mg/dL (30-150); eGFR > 60 See Note
--- NOTE | 2025-04-21 11:06 | ESPR_ITS ---
<Statement entered by Ashley Anderson MD - 04/26/25 07:57> I reviewed above note and agree with findings and plans. I have also personally examined the patient with medicine team and went over assessment and plan with medical team including rn international and resident physician. Documentation for date of: 04/21/25 Subjective Subjective Interval history: No acute overnight events. Still has diffuse abdominal pain and distention, although no nausea or vomiting. She continued n.p.o. and has been evaluated by general surgery today who plans for EX-LAP today. Denies fever, chills, headaches, chest pain, sob, cough, GI or urinary symptoms. Exam Vital Signs Temp Pulse Resp BP Pulse Ox O2 Del Method O2 Flow Rate 97.2 F 108 H 18 113/70 95 Nasal Cannula 2 04/21/25 08:00 04/21/25 08:00 04/21/25 08:00 04/21/25 08:00 04/21/25 08:00 04/21/25 08:00 04/20/25 23:12 Narrative Exam GENERAL * Obese female, no apparent distress, satting well on 2L nasal cannula. HEENT * NCAT.?[place]. Oral mucosa is moist. Patent Nares NECK * Supple, nontender, no JVD. CHEST * RRR, no m/g/r * CTAB, no w/r/r, symmetrical expansion. ABDOMEN * Firm, distended throughout, but worse on the left side. * Visible large nonreducible umbilical hernia that is painful to deep palpation * Bowel sounds presents EXTREMITIES * No edema/cyanosis.? SKIN * Warm and dry, no jaundice/rashes. NEUROMUSCULAR * No focal neurologic deficits. PSYCHIATRY * Normal mood and affect, cooperative, no SI or HI or hallucinations. Objective Labs 04/21/25 07:22 04/21/25 07:22 Labs: Laboratory Results - last 24 hr 04/20/25 04/20/25 04/21/25 21:58 23:39 01:40 WBC 21.7 H RBC 5.26 H Hgb 16.0 Hct 47.1 H MCV 90 MCH 30.4 MCHC 34.0 RDW Std Deviation 41.7 Plt Count 336 Neut % (Auto) 82 H Lymph % (Auto) 11 [place] % (Auto) 6 Eos % (Auto) 0 Baso % (Auto) 1 Neut # (Auto) 17.7 H Lymph # (Auto) 2.5 [place] # (Auto) 1.3 H Eos # (Auto) 0.0 Baso # (Auto) 0.1 Immature Gran # (Auto) 0.09 H Absolute Nucleated RBC 0.00 Immature Gran % 0 Nucleated RBC % 0 ESR 62 H Puncture Site Right Radial ABG pH 7.38 ABG pCO2 44 ABG pO2 77 L ABG HCO3 26 ABG O2 Saturation 95 ABG Base Excess 1 VBG pH 7.41 7.41 VBG pCO2 43 40 VBG pO2 40 53 VBG O2 Sat (Kahlil) 74 L 87 L VBG Base Excess 2 1 Oxygen Liter Flow 3 FiO2 32 Sodium 141 143 Potassium 4.5 4.0 D Chloride 97 L 106 Carbon Dioxide 24.6 23.2 Anion Gap 19 H 14 BUN 21 15 Creatinine 1.2 0.9 Estim Creat Clear Calc 58.6 L 78.2 eGFR 52 L > 60 BUN/Creatinine Ratio 18 17 Glucose [address] Glu mg/dL 209 H Hemoglobin A1c 8.9 H Calculated Osmolality 297 H 294 Lactic Acid 4.2 H* 1.8 Calcium 10.1 8.6 D Corrected Calcium 10.1 8.6 D Phosphorus 4.1 Magnesium 2.4 Total Bilirubin 0.5 Direct Bilirubin 0.2 AST 34 ALT 23 Alkaline Phosphatase 106 C-Reactive Prot, Quant 2.5 H Total Protein 9.1 H Albumin 5.1 H 4.1 D Globulin 4.0 H Albumin/Globulin Ratio 1.3 Triglycerides Cholesterol LDL Cholesterol, Calc HDL Cholesterol Cholesterol/HDL Ratio Amylase 52 Lipase 35 Beta-Hydroxybutyrate/Acetoacetate 1.2 H Procalcitonin 0.14 TSH 4.17 Ur Collection Type Clean Catch Urine Color Yellow Urine Clarity Clear Urine pH 6.0 Ur Specific [place] 1.044 H Urine Protein Negative Urine Glucose (UA) 4+ A Urine Ketones 2+ A Urine Blood Negative Urine Nitrite Negative Urine Bilirubin Negative Urine Urobilinogen (Auto) Negative Ur Leukocyte Esterase Negative Urine RBC 14 H Urine WBC 3 Ur Squamous Epith Cells 2 Urine Bacteria Rare Urine Yeast (Budding) Present A Ur Culture Indicated? Not Indicated 04/21/25 07:22 WBC 11.7 H D RBC 4.61 Hgb 14.3 Hct 42.3 MCV 92 MCH 31.0 MCHC 33.8 RDW Std Deviation 43.8 Plt Count 256 D Neut % (Auto) 86 H Lymph % (Auto) 6 L [place] % (Auto) 7 Eos % (Auto) 0 Baso % (Auto) 1 Neut # (Auto) 10.0 H Lymph # (Auto) 0.7 L [place] # (Auto) 0.8 Eos # (Auto) 0.0 Baso # (Auto) 0.1 Immature Gran # (Auto) 0.04 H Absolute Nucleated RBC 0.00 Immature Gran % 0 Nucleated RBC % 0 ESR Puncture Site ABG pH ABG pCO2 ABG pO2 ABG HCO3 ABG O2 Saturation ABG Base Excess VBG pH VBG pCO2 VBG pO2 VBG O2 Sat (Kahlil) VBG Base Excess Oxygen Liter Flow FiO2 Sodium 145 Potassium 4.3 Chloride 108 H Carbon Dioxide 25.0 Anion Gap 12 BUN 19 Creatinine 0.9 Estim Creat Clear Calc 79.3 eGFR > 60 BUN/Creatinine Ratio 21 H Glucose [address] Glu mg/dL Hemoglobin A1c Calculated Osmolality 298 H Lactic Acid Calcium 9.0 Corrected Calcium 9.0 Phosphorus Magnesium Total Bilirubin 0.5 Direct Bilirubin AST 25 ALT 17 Alkaline Phosphatase 84 D C-Reactive Prot, Quant Total Protein 8.0 Albumin 4.4 Globulin 3.6 H Albumin/Globulin Ratio 1.2 Triglycerides 160 H Cholesterol 160 LDL Cholesterol, Calc 93 HDL Cholesterol 35 L Cholesterol/HDL Ratio 4.6 Amylase Lipase Beta-Hydroxybutyrate/Acetoacetate Procalcitonin TSH Ur Collection Type Urine Color Urine Clarity Urine pH Ur Specific [place] Urine Protein Urine Glucose (UA) Urine Ketones Urine Blood Urine Nitrite Urine Bilirubin Urine Urobilinogen (Auto) Ur Leukocyte Esterase Urine RBC Urine WBC Ur Squamous Epith Cells Urine Bacteria Urine Yeast (Budding) Ur Culture Indicated? ABG Interpretation ABG results: 04/20/25 04/20/25 04/21/25 21:58 23:39 01:40 ABG pH 7.38 ABG pCO2 44 ABG pO2 77 L ABG HCO3 26 ABG O2 Saturation 95 ABG Base Excess 1 VBG pH 7.41 7.41 VBG pCO2 43 40 VBG pO2 40 53 VBG Base Excess 2 1 Quality Measures Quality Measures none Assessment & Plan Assessment Current Active Medications: Generic Name Dose Route Start Last Admin Trade Name Freq PRN Reason Stop Dose Admin Dextrose 25 ml 04/21/25 02:03 Dextrose 50%-Water Inj 50 Ml Syringe IV 05/21/25 02:02 Q15MIN PRN BG 50-70 responsive npo pt Dextrose 50 ml 04/21/25 02:03 Dextrose 50%-Water Inj 50 Ml Syringe IV 05/21/25 02:02 Q15MIN PRN BG <50 OR BG <70 & pt unresponsive Fentanyl Citrate 25 mcg 04/21/25 10:59 Fentanyl Cit Inj 50 Mcg/Ml Amp 2ml IVP 04/21/25 12:59 Q5M PRN PAIN SCALE 1-3 (mild Glucagon 1 mg 04/21/25 02:03 Glucagon Inj 1 Mg Vial IM Q15MIN PRN BG <70, and no IV access Hydromorphone HCl 0.4 mg 04/21/25 10:59 Hydromorphone Inj 2 Mg/Ml Vial IVP 04/21/25 12:59 Q5M PRN PAIN SCALE 7-10 (Severe Piperacillin/Tazobactam/Dextrose 3.375 gm in 50 mls @ 12.5 mls/hr 04/21/25 14:00 Zosyn IV 04/28/25 02:14 Q8HR KSENIA Protocol Insulin Human Lispro 0 unit 04/21/25 02:15 04/21/25 07:52 Insulin Lispro (Admelog) 1 Unit/0.01 Ml Unit SC 05/21/25 02:14 2 unit Q6H KSENIA Administration Protocol Morphine Sulfate 2 mg 04/21/25 02:03 04/21/25 06:05 Morphine Sulf Inj 4 Mg/Ml Vial IVP 04/26/25 02:02 2 mg Q2H PRN Administration PAIN SCALE 4-10(Mod-Sev Morphine Sulfate 3 mg 04/21/25 10:59 Morphine Sulf Inj 4 Mg/Ml Vial IV 04/21/25 12:59 Q5M PRN PAIN SCALE 4-6 (Moderate Ondansetron HCl 4 mg 04/21/25 02:03 04/21/25 04:26 Ondansetron Inj 2 Mg/Ml Inj 2 Ml IVP 05/21/25 02:02 4 mg Q6H PRN Administration NAUSEA OR VOMITING Protocol Plan 59-year-old female with past medical history of hypertension, DM2, and umbilical hernia was admitted to the hospital on 04/21/2025 due to incarcerated umbilical hernia as well as hyperglycemia. Incarcerated umbilical hernia SBO 2/2 above Intractable nausea and vomiting 2/2 above Patient came in with complaints of abdominal pain and nausea with vomiting for the past day. Patient does have a history of umbilical hernia for the past few years and has not had medical attention for this. Patient is abdomen/post CT with contrast showed an SBO with incarcerated bowel containing anterior abdominal hernia and some diverticulitis. Patient CRP was elevated at 2.5, ESR 62, and WBCs were 21.7 Patient received metronidazole and Rocephin in the ER as well as 2 L of IV fluids. Plan: IV Zosyn 3.375 gm q6hrs Additional 1 L of IV fluids N.p.o. Blood cultures ordered She is scheduled for surgery this afternoon Uncontrolled DM2 Hyperglycemia Patient's A1c was 8.9 Blood glucose was 326 and some ketones in the urine. Patient's anion gap was 19, but patient also had lactic acidosis with which could have contributed to patient's anion gap as patient did not have metabolic acidosis. Beta-hydroxybutyrate was 1.2 Insulin 8 units x 1 in the ER Plan: Degludec 10 units x1 ISS every 6 hours Additional IV fluids Repeat renal function panel to ensure that patient is not progressing into DKA Hypoglycemia protocol ordered Lactic acidosis, resolved High anion gap (resolved) Patient's anion gap was 19 and patient's lactic acid was 4.2 initially Patient lactic acid did downtrend to 1.8 after 2 L of IV fluids. Plan: Continue glycemic control Daily labs Cholelithiasis Cholecystitis? Patient's clinical picture of abdominal pain along with nausea could be indicative of cholecystitis, but given that patient does have an incarcerated hernia patient's clinical picture is due to this. Patient's ultrasound gallbladder showed cholelithiasis as well as gallbladder wall thickening and CBD was 0.2 cm. Plan: There is no IVF Zosyn Will follow-up on morning labs General Surgery consulted, appreciate commendations Disposition: Patient admitted to med/tele. Diet: NPO GI prophylaxis: not indicated DVT prophylaxis: SCD given possible surgical procedure Code: Full Case was discussed with attending physician. Corina Spencer DO PGY II This document was transcribed using voice recognition technology. Minor inaccuracies may be present.
--- NOTE | 2025-04-21 11:37 | PD.SURCONS ---
HPI Consult details Consult date: 04/21/25 Reason for consultation narrative: Small bowel obstruction from incarcerated umbilical hernia History of present illness: 59-year-old morbidly female with history of diabetes and hypertension presenting to the emergency department with worsening abdominal pain with nausea and vomiting. According to the family she has had chronic history of hernia without symptoms of abdominal pain or vomiting in the past. CT scan revealed umbilical hernia with incarcerated small bowel causing small bowel obstruction. She was also noted to have gallstones, possible sigmoid diverticulitis with questionable colovesical fistula. However, clinically patient does not have signs of colovesical fistula, she denies dysuria, fecal urea or pneumaturia. She denies having colonoscopy in the past. She also denies history of blood per rectum or changes in bowel habits. Review of Systems Constitutional Constitutional: Denies chills and Denies fever(s) Cardiovascular Cardiovascular: Denies chest pain Respiratory Respiratory: Denies cough Gastrointestinal Gastrointestinal: Reports abdominal pain, Reports nausea and Reports vomiting Genitourinary Genitourinary: Denies difficulty voiding Hematologic/Lymphatic Hematologic/Lymphatic: Denies easy bleeding and Denies easy bruising Past Medical History Surgical History OTHER SURGICAL HX: No surgeries in the past Social History SMOKING STATUS: Never smoker SUBSTANCE USE: does not use ALCOHOL: Never Meds Home Medications and Allergies Home Medications ?Medication ?Instructions ?Recorded ?Confirmed ?Type empagliflozin 25 mg tablet 25 mg PO QDAY 04/21/25 04/21/25 History (Jardiance) lisinopril 5 mg tablet 5 mg PO QDAY 04/21/25 04/21/25 History metformin 1,000 mg tablet 1,000 mg PO BID 04/21/25 04/21/25 History sitagliptin phosphate 100 mg 100 mg PO QDAY 04/21/25 04/21/25 History tablet (Januvia) Allergies Allergy/AdvReac Type Severity Reaction Status Date / Time No Known Allergies Allergy Verified 04/20/25 22:39 Exam Vital Signs Temp Pulse Resp BP Pulse Ox O2 Del Method O2 Flow Rate 97.2 F 108 H 18 113/70 95 Nasal Cannula 2 04/21/25 08:00 04/21/25 08:00 04/21/25 08:00 04/21/25 08:00 04/21/25 08:00 04/21/25 08:00 04/20/25 23:12 Constitutional Constitutional: no acute distress and morbidly obese Routine Abdominal Exam Comments: Abdomen is soft and nondistended. She has large periumbilical hernia with incarcerated small bowel Results Results: Laboratory Laboratory results: results reviewed Results: Imaging CT scan - abdomen: report reviewed and image reviewed CT scan - pelvis: report reviewed and image reviewed Assessment & Plan Additional Assessment Additional comments: Small bowel obstruction secondary to incarcerated umbilical hernia. Clinically patient does not have evidence of cholecystitis or colovesical fistula. She can follow-up as an outpatient for elective cholecystectomy. She will need an outpatient colonoscopy and cystoscopy for evaluation of colovesical fistula. Plan She will be taken to the operating room for exploratory laparotomy, possible bowel resection. Risks include but not limited to infection, bleeding, injury to bowel, surrounding vascular structures, need for further procedure and or operation, recurrence of hernia, pneumonia, blood clot, heart attack, stroke and discussed with the patient via aircraft instrument engineer and her family members. Benefits and alternatives explained to them, all their questions answered, they agreed and consented to proceed with the operation.
--- NOTE | 2025-04-21 11:44 | PC.SS ---
Selma Guerrero is a 59-year-old female admitted to Med Surg for Incarcerated Umbilical Hernia. SS conducted bedside contact with the patient to complete initial assessment and to discuss discharge planning. Role and reason explained. Patient confirmed demographic information. Patient identifies her dtr Chery Nova [phone] as her surrogate decision maker. Pt states she is able to complete all ADL?s independently. No need for any source of DME. Pts PCP is Dr. Olsen. Pharmacy of choice [facility]. Discharge options discussed and the pt wishes to return home.? Family will provide transportation upon DC. No further intervention required at this time, social media intern would be available to address any further concerns. DC Plan: Home Contact: Chery Pichardo Address: Confirmed on face sheet PCP: Raúl
--- NOTE | 2025-04-21 13:40 | ESOP_ITS ---
Date of Procedure 04/21/25 Pre Op Diagnosis Small bowel obstruction secondary to umbilical hernia Post Op Diagnosis Small bowel obstruction secondary to umbilical hernia Procedure Exploratory laparotomy, lysis of adhesions Incidental appendectomy Findings Very large hernia sac containing loops of distal ileum, cecum and part of transverse colon Procedure Description Patient brought into the operating room in supine position. After administration of general tracheal anesthesia, patient's abdomen prepped and draped in standard surgical manner. Patient was noted to have a very large umbilical hernia defect with ulcerated and purpleish discoloration of umbilical skin. A laparotomy incision was made from lower epigastrium and extended to the right and around the umbilicus. Dissection was deepened into soft tissue. Patient was noted to have a very large hernia sac. The sac was circumferentially dissected out surrounding tissue. Anterior abdominal fascia above the hernia sac was opened and extended toward the hernia sac. The hernia sac was then from abdominal fascia and opened. The contents were loops of distal ileum along with the cecum and part of transverse colon. There were significant adhesions of loops of small bowel into the hernia sac. Sac was meticulously dissected off of the bowel and omentum and was excised. The transition point of bowel obstruction was in mid ileum, was viable. Proximal to the area of obstruction small bowel was significantly dilated, distally was decompressed. I was able to milk the contents of small bowel through the area of obstruction and appeared viable and healthy. An incidental appendectomy was performed. The mesoappendix was ligated with 0 silk tie. The appendix was divided near the appendix and cecal junction and ligated with 0 silk tie. Appendiceal stump was cauterized and inverted with a pursestring suture using 2- 0 Vicryl. The small bowel and the colon were placed inside the abdominal cavity. Abdominal fascia was healthy in appearance. The fascia was reapproximated with running 0 PDS as well as interrupted sutures with #1 Vicryl. Because of the findings of diverticulitis on CT scan I elected not to place any mesh. The nonviable umbilical skin was excised until healthy appearing skin was encountered. A 19 Sinhala TERESA drain placed over the fascia and was brought out of a stab incision and over right lower quadrant. The drain was secured with 2-0 nylon suture. Subcutaneous tissue closed with interrupted sutures using 2-0 Vicryl and the incision was closed with james. Sterile pressure dressings and abdominal binder applied. Patient tolerated procedure well. She was extubated, breathing spontaneously and without difficulty and was transferred to postanesthesia care in stable condition. Instruments, needles and sponge counts were reported to be correct x 2. Anesthesia GETA and local Pathology / specimen Other (Hernia sac and appendix) Estimated Blood Loss 25 Condition Stable Disposition PACU Surgeon Camila Lewis MD Surgical Staff Operation Date: 04/21/25 11:00 Case Staff Anesthesiologist: Kal Fuentes RN First Assistant: Leroy Helton
--- NOTE | 2025-04-21 13:43 | SUR.PHASEI ---
[id number] Patient arrived to recovery resting comfortably in bed, on oxygen 8L via oxy mask, sleeping and able to arouse with verbal prompting, breathing unlabored, vital signs stable, denies pain and nausea, dressing intact to abdomen; james, gauze, medipore tape, no bleeding noted, TERESA drain 19F in place and secured to abdominal binder, 16F draper catheter in place with leg secure; draining to gravity, report received from Nat LEE and Dr. Fuentes
--- NOTE | 2025-04-21 14:39 | SUR.PHASEI ---
1435 Report given to Bell LEE, patient meets discharge criteria from recovery, awake with daughter at bedside, on oxygen 4L via nasal cannula, breathing unlabored, vital signs stable, denies pain, nausea at a tolerable level, dressing intact; no bleeding noted, urinary catheter in patient with leg secure; draining to gravity. 1439 Patient transported via bed to room 379 without incident, patients family arrived, patient resting comfortably in bed with call light in reach when this junior copywriter left patient's room
--- NOTE | 2025-04-21 15:47 | PC.SS ---
Rounding: Pending SX with Dr. Lewis
[2025-04-21] MEDS: ASCORBIC ACID 250 MG TABLET 500 MG PO (21:44)
[2025-04-22] VITALS (9 sets, daily range): BP systolic 109–140; BP diastolic 65–80; PULSE 58–101; RESP 18–20; TEMP 35.9–36.4; O2SAT 92–100
[2025-04-22] MEDS: MORPHINE SULF INJ 4 MG/ML VIAL 2 MG IVP ×4 (02:02→13:39)
[2025-04-22 05:09] LABS: Basophils # (Auto) 0.0 Thou/mm3 (0.0-0.2); Basophils % (Auto) 0 % (0-2.5); Eosinophils # (Auto) 0.0 Thou/mm3 (0.0-0.5); Eosinophils % (Auto) 0 % (0-10); Hematocrit 39.2 % (36.0-46.0); Hemoglobin 12.7 g/dL (12.0-16.0); Immature Granulocytes Auto 0.02 Thou/mm3 (0.00-0.00); Lymphocytes # (Auto) 1.7 Thou/mm3 (1.0-4.8); Lymphocytes % (Auto) 15 % (10-50); Mean Corpuscular HGB Conc 32.4 g/dl (31.0-37.0); Mean Corpuscular Hemoglobin 30.8 pg (25.0-35.0); Mean Corpuscular Volume 95 fL (80-100); Monocytes # (Auto) 1.0 Thou/mm3 (0.0-0.8); Monocytes % (Auto) 9 % (0-12); Neutrophils # (Auto) 8.2 Thou/mm3 (1.8-7.7); Neutrophils % (Auto) 75 % (37-80); Nucleated Red Blood Cell # 0.00 Thou/mm3 (0.00-0.00); Nucleated Red Blood Cell % 0 /100 WBC (0); Platelet Count 247 Thou/mm3 (140-440); RDW Standard Deviation 46.5 fL (36.4-46.3); Red Blood Count 4.12 Miln/mm3 (4.00-5.20); White Blood Count 10.9 Thou/mm3 (3.6-11.0)
[2025-04-22] MEDS: PIPER/TAZO 3.375 GM PREMIX 3.375 GM/50 ML BAG IV ×3 (05:16→21:28)
[2025-04-22 05:24] LABS: INR 1.0 (0.9-1.3); Prothrombin Time 10.9 Seconds (9.0-12.2)
[2025-04-22 05:33] LABS: Alanine Aminotransferase 15 U/L (10-49); Albumin, Serum 3.9 gm/dL (3.5-5.0); Albumin/Globulin Ratio 1.1 (1.2-2.2); Alkaline Phosphatase 72 U/L (46-116); Anion Gap 15 (7-16); Aspartate Amino Transferase 24 U/L (0-34); BUN/Creatinine Ratio 29 Ratio (12-20); Bilirubin,Total 0.6 mg/dL (0.3-1.2); Blood Urea Nitrogen 20 mg/dL (9-23); Calcium 8.5 mg/dL (8.3-10.6); Calcium (Corrected) 8.6 mg/dL (8.5-10.1); Carbon Dioxide 23.7 mMol/L (20.0-31.0); Chloride 109 mMol/L (98-107); Creatinine (Component) 0.7 mg/dL (0.6-1.3); Estimated Creatinine Clearance 100.1 mL/min (>60); Globulin 3.4 gm/dL (2.3-3.5); Glucose 157 mg/dL (74-106); Osmolality,Calculated 299 (275-295); Potassium 4.2 mMol/L (3.4-5.1); Sodium 148 mMol/L (136-145); Total Protein 7.3 gm/dL (5.7-8.2); eGFR > 60 See Note
[2025-04-22] MEDS: ASCORBIC ACID 250 MG TABLET 500 MG PO ×2 (08:07→20:10)
[2025-04-22] MEDS: ZINC SULFATE 220 MG CAPSULE PO (08:07)
--- NOTE | 2025-04-22 09:27 | ESPR_ITS ---
<Statement entered by Ashley Anderson MD - 04/26/25 07:59> I reviewed above note and agree with findings and plans. I have also personally examined the patient with medicine team and went over assessment and plan with medical team including sales management intern and resident physician. <Statement entered by William Adkins MD - 04/23/25 13:38> On clear liquid diet tolerating well, no bowel movements yet. Working with physical therapy. Will advance diet as tolerated. Anticipating d/c within 24-48 hours. I discussed with and supervised the sales management intern physician involved in the care of this patient. Patient assessment and plan was discussed with entire medicine team, including my attending. I agree with the assessment and plan as documented by sales management intern doctor. Patient care was discussed with my attending physician Dr. Justin Adkins, PGY-3 Documentation for date of: 04/22/25 Subjective Subjective Interval history: Patient seen and examined this morning with family at bedside. Reports feeling much better overall. Had a bowel movement overnight. Endorses mild soreness but denies significant abdominal pain. Denies nausea, vomiting, chest pain, shortness of breath, dizziness, or urinary complaints. No other complaints at this time. Exam Vital Signs Temp Pulse Resp BP Pulse Ox O2 Del Method O2 Flow Rate 96.6 F L 94 18 124/77 95 Nasal Cannula 4 04/22/25 08:00 04/22/25 08:00 04/22/25 08:00 04/22/25 08:00 04/22/25 08:00 04/22/25 08:00 04/22/25 08:00 Narrative Exam General: Awake, alert, comfortable appearing. HEENT: NCAT, moist mucous membranes. CV: RRR, no murmurs. Lungs: Clear to auscultation bilaterally, mild O? requirement. Abdomen: Soft, mildly distended, appropriately tender post-op. Midline incision clean, james intact. TERESA drain with serosanguinous output. Bowel sounds present. Extremities: No edema. Neuro: AOx3, no focal deficits. Objective Labs 04/22/25 04:05 04/22/25 04:05 Labs: Laboratory Results - last 24 hr 04/22/25 04:05 WBC 10.9 RBC 4.12 Hgb 12.7 Hct 39.2 MCV 95 MCH 30.8 MCHC 32.4 RDW Std Deviation 46.5 H Plt Count 247 Neut % (Auto) 75 Lymph % (Auto) 15 [place] % (Auto) 9 Eos % (Auto) 0 Baso % (Auto) 0 Neut # (Auto) 8.2 H Lymph # (Auto) 1.7 [place] # (Auto) 1.0 H Eos # (Auto) 0.0 Baso # (Auto) 0.0 Immature Gran # (Auto) 0.02 H Absolute Nucleated RBC 0.00 Immature Gran % 0 Nucleated RBC % 0 PT 10.9 INR 1.0 Sodium 148 H Potassium 4.2 Chloride 109 H Carbon Dioxide 23.7 Anion Gap 15 BUN 20 Creatinine 0.7 Estim Creat Clear Calc 100.1 eGFR > 60 BUN/Creatinine Ratio 29 H Glucose 157 H D Calculated Osmolality 299 H Calcium 8.5 Corrected Calcium 8.6 Total Bilirubin 0.6 AST 24 ALT 15 Alkaline Phosphatase 72 Total Protein 7.3 Albumin 3.9 D Globulin 3.4 Albumin/Globulin Ratio 1.1 L ABG Interpretation ABG results: 04/20/25 04/20/25 04/21/25 21:58 23:39 01:40 ABG pH 7.38 ABG pCO2 44 ABG pO2 77 L ABG HCO3 26 ABG O2 Saturation 95 ABG Base Excess 1 VBG pH 7.41 7.41 VBG pCO2 43 40 VBG pO2 40 53 VBG Base Excess 2 1 Quality Measures Quality Measures VTE prophylaxis Assessment & Plan Assessment Current Active Medications: Generic Name Dose Route Start Last Admin Trade Name Freq PRN Reason Stop Dose Admin Ascorbic Acid 500 mg 04/21/25 21:00 04/22/25 08:07 Ascorbic Acid 250 Mg Tablet PO 05/21/25 20:59 500 mg BID KSENIA Administration Dextrose 25 ml 04/21/25 02:03 Dextrose 50%-Water Inj 50 Ml Syringe IV 05/21/25 02:02 Q15MIN PRN BG 50-70 responsive npo pt Dextrose 50 ml 04/21/25 02:03 Dextrose 50%-Water Inj 50 Ml Syringe IV 05/21/25 02:02 Q15MIN PRN BG <50 OR BG <70 & pt unresponsive Docusate Sodium 100 mg 04/21/25 21:00 04/22/25 08:12 Docusate Sod 100 Mg Capsule PO 05/21/25 20:59 Not Given BID [facility] Protocol Glucagon 1 mg 04/21/25 02:03 Glucagon Inj 1 Mg Vial IM Q15MIN PRN BG <70, and no IV access Piperacillin/Tazobactam/Dextrose 3.375 gm in 50 mls @ 12.5 mls/hr 04/21/25 14:00 04/22/25 05:16 Zosyn IV 04/28/25 02:14 12.5 mls/hr Q8HR KSENIA Administration Protocol Insulin Human Lispro 0 unit 04/21/25 02:15 04/22/25 07:46 Insulin Lispro (Admelog) 1 Unit/0.01 Ml Unit SC 05/21/25 02:14 Not Given Q6H KSENIA Protocol Morphine Sulfate 2 mg 04/21/25 02:03 04/22/25 08:06 Morphine Sulf Inj 4 Mg/Ml Vial IVP 04/26/25 02:02 2 mg Q2H PRN Administration PAIN SCALE 4-10(Mod-Sev Ondansetron HCl 4 mg 04/21/25 02:03 04/21/25 04:26 Ondansetron Inj 2 Mg/Ml Inj 2 Ml IVP 05/21/25 02:02 4 mg Q6H PRN Administration NAUSEA OR VOMITING Protocol Zinc Sulfate 220 mg 04/22/25 09:00 04/22/25 08:07 Zinc Sulfate 220 Mg Capsule PO 05/22/25 08:59 220 mg QDAY KSENIA Administration Plan 59-year-old female with HTN, DM2, and chronic umbilical hernia admitted for SBO due to incarcerated umbilical hernia, now POD #1 s/p exploratory laparotomy with lysis of adhesions and incidental appendectomy, clinically improving with return of bowel function. # Incarcerated umbilical hernia # POD #1 s/p exploratory laparotomy, lysis of adhesions, incidental appendectomy # Small bowel obstruction, resolved # Hypoxia SBO resolved intraoperatively, Secondary to incarcerated hernia Bowel viable, return of bowel function with BM overnight On 4L NC sat at 94%, when weaned off O2 and stood up sat dropped to 88% Plan: * Continue post-operative management per General Surgery * Continue Zosyn (04/21- ) * Monitor TERESA drain output * Maintain abdominal binder * Encourage ambulation * Pain control as needed * Advance diet to clear liquid diet per surgery * Incentive spirometry Q2H * Encourage ambulation * Wean oxygen as tolerated # Type 2 diabetes mellitus with hyperglycemia Admission A1c 8.9 Glucose improving post-op Glucose 162 this morning Plan: * Continue insulin sliding scale * Monitor glucose closely * Resume basal insulin once tolerating diet # Cholelithiasis No evidence of acute cholecystitis Plan: * No acute intervention * Outpatient follow-up for elective cholecystectomy # Lactic acidosis, resolved # High anion gap (resolved) Patient's anion gap was 19 and patient's lactic acid was 4.2 initially Patient lactic acid did downtrend to 1.8 after 2 L of IV fluids. Plan: Daily labs Health Maintenance: Diet: Clear liquid diet. DVT prophylaxis: SCDs GI prophylaxis: Not indicated Code Status: Full Disposition: Continue inpatient post-op care ----- Plan discussed with attending physician Dr. Anderson and senior resident Dr. Lucille Rogers MD PGY-1 Internal Medicine
--- NOTE | 2025-04-22 11:04 | PD.SURPROG ---
Documentation for date of: 04/22/25 Subjective Subjective Narrative: Patient is seen and examined. She is resting comfortably. She is complaining of incisional pain. She has been passing flatus and had a bowel movement Exam Vital Signs Temp Pulse Resp BP Pulse Ox O2 Del Method O2 Flow Rate 96.6 F L 94 18 124/77 95 Nasal Cannula 4 04/22/25 08:00 04/22/25 08:00 04/22/25 08:00 04/22/25 08:00 04/22/25 08:00 04/22/25 08:00 04/22/25 08:00 Constitutional Constitutional: no acute distress Routine Abdominal Exam Comments: Abdomen is soft and nondistended. Incision with dressings clean, dry and intact Assessment & Plan Assessment Additional comments: Postop day #1 status post exploratory laparotomy, lysis of adhesions and incidental appendectomy Plan Start patient on clear liquids. DC Osorio catheter. Increase ambulation and use incentive spirometer PROCEDURES: Procedures Exploratory laparotomy, lysis of adhesions Incidental appendectomy
--- NOTE | 2025-04-22 15:09 | PC.SS ---
Rounding Note: Plan is to advance patient's diet. BM pending. Plan is to d/c tomorrow.
[2025-04-22] MEDS: INSULIN LISPRO (AdmeLOG) 1 UNIT/0.01 ML UNIT SC (20:06)
[2025-04-22] MEDS: DOCUSATE SOD 100 MG CAPSULE PO (20:10)
[2025-04-23] VITALS (7 sets, daily range): BP systolic 112–141; BP diastolic 67–84; PULSE 67–103; RESP 17–19; TEMP 36–36.4; O2SAT 92–98
[2025-04-23] MEDS: ACETAMINOPHEN 325 MG TABLET 650 MG PO ×2 (00:14→08:31)
[2025-04-23] MEDS: PIPER/TAZO 3.375 GM PREMIX 3.375 GM/50 ML BAG IV ×3 (05:02→21:09)
[2025-04-23 05:36] LABS: Basophils # (Auto) 0.1 Thou/mm3 (0.0-0.2); Basophils % (Auto) 1 % (0-2.5); Eosinophils # (Auto) 0.3 Thou/mm3 (0.0-0.5); Eosinophils % (Auto) 3 % (0-10); Hematocrit 38.0 % (36.0-46.0); Hemoglobin 12.5 g/dL (12.0-16.0); Immature Granulocytes Auto 0.06 Thou/mm3 (0.00-0.00); Lymphocytes # (Auto) 2.1 Thou/mm3 (1.0-4.8); Lymphocytes % (Auto) 19 % (10-50); Mean Corpuscular HGB Conc 32.9 g/dl (31.0-37.0); Mean Corpuscular Hemoglobin 31.1 pg (25.0-35.0); Mean Corpuscular Volume 95 fL (80-100); Monocytes # (Auto) 1.0 Thou/mm3 (0.0-0.8); Monocytes % (Auto) 9 % (0-12); Neutrophils # (Auto) 7.5 Thou/mm3 (1.8-7.7); Neutrophils % (Auto) 69 % (37-80); Nucleated Red Blood Cell # 0.00 Thou/mm3 (0.00-0.00); Nucleated Red Blood Cell % 0 /100 WBC (0); Platelet Count 244 Thou/mm3 (140-440); RDW Standard Deviation 45.2 fL (36.4-46.3); Red Blood Count 4.02 Miln/mm3 (4.00-5.20); White Blood Count 10.9 Thou/mm3 (3.6-11.0)
[2025-04-23 06:04] LABS: Alanine Aminotransferase 12 U/L (10-49); Albumin, Serum 3.8 gm/dL (3.5-5.0); Albumin/Globulin Ratio 1.2 (1.2-2.2); Alkaline Phosphatase 72 U/L (46-116); Anion Gap 9 (7-16); Aspartate Amino Transferase 20 U/L (0-34); BUN/Creatinine Ratio 30 Ratio (12-20); Bilirubin,Total 0.6 mg/dL (0.3-1.2); Blood Urea Nitrogen 18 mg/dL (9-23); Calcium 8.3 mg/dL (8.3-10.6); Calcium (Corrected) 8.5 mg/dL (8.5-10.1); Carbon Dioxide 26.8 mMol/L (20.0-31.0); Chloride 104 mMol/L (98-107); Creatinine (Component) 0.6 mg/dL (0.6-1.3); Estimated Creatinine Clearance 116.8 mL/min (>60); Globulin 3.3 gm/dL (2.3-3.5); Glucose 137 mg/dL (74-106); Osmolality,Calculated 283 (275-295); Potassium 3.8 mMol/L (3.4-5.1); Sodium 140 mMol/L (136-145); Total Protein 7.1 gm/dL (5.7-8.2); eGFR > 60 See Note
[2025-04-23] MEDS: ASCORBIC ACID 250 MG TABLET 500 MG PO ×2 (08:28→21:09)
[2025-04-23] MEDS: DOCUSATE SOD 100 MG CAPSULE PO ×2 (08:28→21:09)
[2025-04-23] MEDS: ZINC SULFATE 220 MG CAPSULE PO (08:28)
--- NOTE | 2025-04-23 10:34 | ESPR_ITS ---
<Statement entered by Ashley Anderson MD - 04/26/25 08:01> I reviewed above note and agree with findings and plans. I have also personally examined the patient with medicine team and went over assessment and plan with medical team including record label internship and resident physician. Documentation for date of: 04/23/25 Subjective Subjective Interval history: No acute overnight events. Patient with no BM but Records yesterday stated patient had BM overnight after surgery and when asked patient agreed but this morning states she hasnt had a BM in 3 days but saying she did before surgery. Unclear so will just keep on same diet for now. Endorses mild pain on the surgery site but tolerable. Will continue to monitor. Exam Vital Signs Temp Pulse Resp BP Pulse Ox O2 Del Method O2 Flow Rate 96.8 F 75 18 129/71 92 L Oxy Mask 4 04/23/25 08:00 04/23/25 08:00 04/23/25 08:00 04/23/25 08:00 04/23/25 08:00 04/23/25 08:00 04/23/25 08:00 Narrative Exam General: Awake, alert, comfortable appearing. HEENT: NCAT, moist mucous membranes. CV: RRR, no murmurs. Lungs: Clear to auscultation bilaterally. Abdomen: Soft, mildly distended, appropriately tender post-op. Midline incision clean, james intact. TERESA drain with serosanguinous output. Bowel sounds present. Extremities: No edema. Neuro: AOx3, no focal deficits. Objective Labs 04/23/25 04:30 04/23/25 04:30 Labs: Laboratory Results - last 24 hr 04/23/25 04:30 WBC 10.9 RBC 4.02 Hgb 12.5 Hct 38.0 MCV 95 MCH 31.1 MCHC 32.9 RDW Std Deviation 45.2 Plt Count 244 Neut % (Auto) 69 Lymph % (Auto) 19 [place] % (Auto) 9 Eos % (Auto) 3 Baso % (Auto) 1 Neut # (Auto) 7.5 Lymph # (Auto) 2.1 [place] # (Auto) 1.0 H Eos # (Auto) 0.3 Baso # (Auto) 0.1 Immature Gran # (Auto) 0.06 H Absolute Nucleated RBC 0.00 Immature Gran % 1 H Nucleated RBC % 0 Sodium 140 Potassium 3.8 Chloride 104 Carbon Dioxide 26.8 Anion Gap 9 BUN 18 Creatinine 0.6 Estim Creat Clear Calc 116.8 eGFR > 60 BUN/Creatinine Ratio 30 H Glucose 137 H Calculated Osmolality 283 Calcium 8.3 Corrected Calcium 8.5 Total Bilirubin 0.6 AST 20 ALT 12 Alkaline Phosphatase 72 Total Protein 7.1 Albumin 3.8 Globulin 3.3 Albumin/Globulin Ratio 1.2 ABG Interpretation ABG results: 04/20/25 04/20/25 04/21/25 21:58 23:39 01:40 ABG pH 7.38 ABG pCO2 44 ABG pO2 77 L ABG HCO3 26 ABG O2 Saturation 95 ABG Base Excess 1 VBG pH 7.41 7.41 VBG pCO2 43 40 VBG pO2 40 53 VBG Base Excess 2 1 Quality Measures Quality Measures VTE prophylaxis Assessment & Plan Assessment Current Active Medications: Generic Name Dose Route Start Last Admin Trade Name Freq PRN Reason Stop Dose Admin Acetaminophen 650 mg 04/23/25 00:03 04/23/25 08:31 Acetaminophen 325 Mg Tablet PO 05/23/25 00:02 650 mg Q6HR PRN Administration Fever > 100.4 or pain 1-3 Ascorbic Acid 500 mg 04/21/25 21:00 04/23/25 08:28 Ascorbic Acid 250 Mg Tablet PO 05/21/25 20:59 500 mg BID KSENIA Administration Dextrose 25 ml 04/21/25 02:03 Dextrose 50%-Water Inj 50 Ml Syringe IV 05/21/25 02:02 Q15MIN PRN BG 50-70 responsive npo pt Dextrose 50 ml 04/21/25 02:03 Dextrose 50%-Water Inj 50 Ml Syringe IV 05/21/25 02:02 Q15MIN PRN BG <50 OR BG <70 & pt unresponsive Docusate Sodium 100 mg 04/21/25 21:00 04/23/25 08:28 Docusate Sod 100 Mg Capsule PO 05/21/25 20:59 100 mg BID KSENIA Administration Protocol Glucagon 1 mg 04/21/25 02:03 Glucagon Inj 1 Mg Vial IM Q15MIN PRN BG <70, and no IV access Piperacillin/Tazobactam/Dextrose 3.375 gm in 50 mls @ 12.5 mls/hr 04/21/25 14:00 04/23/25 05:02 Zosyn IV 04/28/25 02:14 12.5 mls/hr Q8HR KSENIA Administration Protocol Insulin Human Lispro 0 unit 04/22/25 11:30 04/23/25 07:44 Insulin Lispro (Admelog) 1 Unit/0.01 Ml Unit SC 05/22/25 11:29 Not Given ACHS KSENIA Protocol Morphine Sulfate 2 mg 04/21/25 02:03 04/22/25 13:39 Morphine Sulf Inj 4 Mg/Ml Vial IVP 04/26/25 02:02 2 mg Q2H PRN Administration PAIN SCALE 4-10(Mod-Sev Ondansetron HCl 4 mg 04/21/25 02:03 04/21/25 04:26 Ondansetron Inj 2 Mg/Ml Inj 2 Ml IVP 05/21/25 02:02 4 mg Q6H PRN Administration NAUSEA OR VOMITING Protocol Zinc Sulfate 220 mg 04/22/25 09:00 04/23/25 08:28 Zinc Sulfate 220 Mg Capsule PO 05/22/25 08:59 220 mg QDAY KSENIA Administration Plan 59-year-old female with HTN, DM2, and chronic umbilical hernia admitted for SBO due to incarcerated umbilical hernia, now POD #1 s/p exploratory laparotomy with lysis of adhesions and incidental appendectomy, clinically improving pending BM to advance diet. # Incarcerated umbilical hernia # POD #2 s/p exploratory laparotomy, lysis of adhesions, incidental appendectomy # Small bowel obstruction, resolved # Hypoxia SBO resolved intraoperatively, Secondary to incarcerated hernia Bowel viable On 4L NC sat at 94%, when weaned off O2 and stood up sat dropped to 88% 04/23: Currently on room air saturating at 98% Records yesterday stated patient had BM overnight after surgery and when asked patient agreed but this morning states she hasnt had a BM in 3 days but saying she did before surgery. Unclear so will just keep on same diet for now. No Bm will keep her on clear liquid diet until then Plan: * Continue post-operative management per General Surgery * Continue Zosyn (04/21- ) * Monitor TERESA drain output * Maintain abdominal binder * Encourage ambulation * Pain control as needed * Continue clear liquid diet * Incentive spirometry Q2H * Encourage ambulation * Wean oxygen as tolerated # Type 2 diabetes mellitus with hyperglycemia Admission A1c 8.9 Glucose improving post-op Glucose 137 this morning Plan: * Continue insulin sliding scale * Monitor glucose closely * Resume basal insulin once tolerating diet # Cholelithiasis No evidence of acute cholecystitis Plan: * No acute intervention * Outpatient follow-up for elective cholecystectomy # Lactic acidosis, resolved # High anion gap (resolved) Patient's anion gap was 19 and patient's lactic acid was 4.2 initially Patient lactic acid did downtrend to 1.8 after 2 L of IV fluids. Plan: Daily labs Health Maintenance: Diet: Clear liquid diet. DVT prophylaxis: SCDs GI prophylaxis: Not indicated Code Status: Full Disposition: Continue inpatient post-op care ----- Plan discussed with attending physician Dr. Justin Rogers MD PGY-1 Internal Medicine
--- NOTE | 2025-04-23 12:20 | PD.SURPROG ---
Documentation for date of: 04/23/25 Subjective Subjective Narrative: Patient is seen and examined. Her pain is improving. She is tolerating clear liquids without nausea or vomiting and passing flatus. Her Osorio catheter was removed and she has been voiding without difficulty Exam Vital Signs Temp Pulse Resp BP Pulse Ox O2 Del Method O2 Flow Rate 97.3 F 89 17 112/67 98 Oxy Mask 4 04/23/25 12:00 04/23/25 12:00 04/23/25 12:00 04/23/25 12:00 04/23/25 12:00 04/23/25 12:00 04/23/25 12:00 Constitutional Constitutional: no acute distress Routine Abdominal Exam Comments: Abdomen is soft and obese. Dressings are clean, dry and intact. TERESA drain with minimal output Assessment & Plan Assessment Additional comments: Postop day #2 status post exploratory laparotomy, lysis of adhesions and incidental appendectomy Plan Advance to soft diet. If she continues to improve clinically, tolerated soft diet and have bowel movement, possible discharge home tomorrow PROCEDURES: Procedures Exploratory laparotomy, lysis of adhesions Incidental appendectomy
[2025-04-23] MEDS: Milk Of Magnesia Susp 30 ML UDC PO (12:24)
--- NOTE | 2025-04-23 15:07 | PC.SS ---
Rounding: Plan to increase diet, pending BM, on Oxymask, DC plan home when stable
[2025-04-24] VITALS: BP 120/70; PULSE 89; PULSE 91; RESP 16; TEMP 35.9; O2SAT 99
[2025-04-24 04:00] VITALS: BP 106/63; PULSE 82; PULSE 97; RESP 16; TEMP 36.1; O2SAT 98
[2025-04-24] MEDS: PIPER/TAZO 3.375 GM PREMIX 3.375 GM/50 ML BAG IV (05:09)
[2025-04-24 07:50] VITALS: PULSE 96; RESP 21; O2SAT 95
[2025-04-24 08:00] VITALS: BP 100/75; PULSE 101; PULSE 103; RESP 18; TEMP 36.1; O2SAT 94
[2025-04-24] MEDS: ZINC SULFATE 220 MG CAPSULE PO (08:34)
[2025-04-24] MEDS: ASCORBIC ACID 250 MG TABLET 500 MG PO (08:34)
[2025-04-24 09:10] LABS: Basophils # (Auto) 0.1 Thou/mm3 (0.0-0.2); Basophils % (Auto) 1 % (0-2.5); Eosinophils # (Auto) 0.3 Thou/mm3 (0.0-0.5); Eosinophils % (Auto) 3 % (0-10); Hematocrit 39.1 % (36.0-46.0); Hemoglobin 12.7 g/dL (12.0-16.0); Immature Granulocytes Auto 0.05 Thou/mm3 (0.00-0.00); Lymphocytes # (Auto) 1.8 Thou/mm3 (1.0-4.8); Lymphocytes % (Auto) 23 % (10-50); Mean Corpuscular HGB Conc 32.5 g/dl (31.0-37.0); Mean Corpuscular Hemoglobin 30.1 pg (25.0-35.0); Mean Corpuscular Volume 93 fL (80-100); Monocytes # (Auto) 0.6 Thou/mm3 (0.0-0.8); Monocytes % (Auto) 8 % (0-12); Neutrophils # (Auto) 5.2 Thou/mm3 (1.8-7.7); Neutrophils % (Auto) 66 % (37-80); Nucleated Red Blood Cell # 0.00 Thou/mm3 (0.00-0.00); Nucleated Red Blood Cell % 0 /100 WBC (0); Platelet Count 294 Thou/mm3 (140-440); RDW Standard Deviation 43.0 fL (36.4-46.3); Red Blood Count 4.22 Miln/mm3 (4.00-5.20); White Blood Count 8.0 Thou/mm3 (3.6-11.0)
[2025-04-24 09:18] LABS: Anion Gap 10 (7-16); BUN/Creatinine Ratio 18 Ratio (12-20); Blood Urea Nitrogen 11 mg/dL (9-23); Calcium 8.5 mg/dL (8.3-10.6); Carbon Dioxide 29.3 mMol/L (20.0-31.0); Chloride 102 mMol/L (98-107); Creatinine (Component) 0.6 mg/dL (0.6-1.3); Estimated Creatinine Clearance 116.8 mL/min (>60); Glucose 169 mg/dL (74-106); Osmolality,Calculated 284 (275-295); Potassium 4.1 mMol/L (3.4-5.1); Sodium 141 mMol/L (136-145); eGFR > 60 See Note
--- NOTE | 2025-04-24 09:38 | ESDS_ITS ---
<Statement entered by Ashley Anderson MD - 04/26/25 08:03> I reviewed above note and agree with findings and plans. I have also personally examined the patient with medicine team and went over assessment and plan with medical team including production internship and resident physician. Planned Discharge Date 04/24/25 DS: Providers Provider Date of admission: 04/21/25 02:03 Primary care physician: Levi Olsen MD Admitting Provider: Riki Velez DO Attending Provider on Admission: Ashley Andesron MD Consults: 04/21/25 01:35 Consult to General Surgery Stat Comment: SBO with incarcerated/strangulated hernia! Consulting Provider: Camila Lewis 04/21/25 11:10 Referral Registered Dietitian Routine Comment: poorly controlled DM Attending Provider on DC: Ashley Anderson MD Discharging Provider: Manpreet Rogers MD DS: Diagnosis Problem List Completed Was Problem List Reviewed/Reconciled?: Yes Hospital Course Hospital Course Hospital course: 59-year-old female with a past medical history of hypertension, type 2 diabetes mellitus, and chronic umbilical hernia who presented with acute abdominal pain, nausea, and vomiting. Imaging revealed a small bowel obstruction secondary to an incarcerated umbilical hernia. She was admitted and evaluated by General Surgery. On 04/21/2025, she underwent exploratory laparotomy with lysis of adhesions and incidental appendectomy. Intraoperatively, a very large hernia sac containing distal ileum, cecum, and part of the transverse colon was identified with viable bowel; no bowel resection was required. Mesh repair was deferred due to CT findings suggestive of diverticulitis. A TERESA drain was placed intraoperatively. Postoperatively, the patient remained hemodynamically stable with improving le ukocytosis and normalization of lactic acidosis. She demonstrated return of bowel function with bowel movement on postoperative day one, tolerated advancement of diet per surgery recommendations, and reported only mild postoperative soreness without significant pain. Her oxygen requirement improved with incentive spirometry and ambulation. Blood cultures remained negative. Hyperglycemia was managed with insulin therapy without progression to DKA. Given stable post-operative course, improving symptoms, and clearance by General Surgery, the patient was deemed medically stable for discharge with close outpatient follow-up. Diagnosis during admission: # Incarcerated umbilical hernia # POD #3 s/p exploratory laparotomy, lysis of adhesions, incidental appendectomy # Small bowel obstruction, resolved # Hypoxia, resolved # Type 2 diabetes mellitus with hyperglycemia # Cholelithiasis # Lactic acidosis, resolved # High anion gap (resolved) Discharge Instructions: Follow up with primary care physician within 1 week of discharge Follow up with general surgeon Dr. Lewis within 1-2 weeks of discharge Instructions have been explained to the patient with regards to their medications and how to take them. Patient was able to explain back to physician and nursing staff how to take their medications. Patient expressed understanding with instructions. Follow up with PCP for sleep study for possible TOMAS Continue to take the rest of your medications as prescribed by your primary care physician. Patient has been explained that should any symptoms recur or worsen patient is instructed to return to the Emergency Department. ----- Plan discussed with attending physician Dr. Justin Rogers MD PGY-1 Internal Medicine Time Spent with Patient Time attestation: Total time spent providing and/or coordinating discharge services: Time spent: Greater than 30 minutes Exam Vital Signs Temp Pulse Resp BP Pulse Ox O2 Del Method O2 Flow Rate 97.0 F 101 H 18 100/75 94 L Nasal Cannula 2 04/24/25 08:00 04/24/25 08:00 04/24/25 08:00 04/24/25 08:00 04/24/25 08:00 04/24/25 08:00 04/24/25 08:00 Narrative Exam General: Awake, alert, comfortable appearing. HEENT: NCAT, moist mucous membranes. CV: RRR, no murmurs. Lungs: Clear to auscultation bilaterally. Abdomen: Soft, mildly distended, appropriately tender post-op. Midline incision clean, james intact. TERESA drain with serosanguinous output. Bowel sounds present. Extremities: No edema. Neuro: AOx3, no focal deficits. Discharge Plan Plan Patient Disposition: HOME (Self Care) Care Plan Goals: Follow up with primary care physician within 1 week of discharge Follow up with general surgeon Dr. Lewis within 1-2 weeks of discharge Instructions have been explained to the patient with regards to their medications and how to take them. Patient was able to explain back to physician and nursing staff how to take their medications. Patient expressed understanding with instructions. Follow up with PCP for sleep study for possible TOMAS Continue to take the rest of your medications as prescribed by your primary care physician. Patient has been explained that should any symptoms recur or worsen patient is instructed to return to the Emergency Department. Prescriptions/Referrals Prescriptions/Med Rec: New ascorbic acid (vitamin C) [Vitamin C] 250 mg Tablet 500 mg PO BID Qty: 60 0RF docusate sodium 100 mg Capsule 100 mg PO BID Qty: 60 0RF zinc sulfate 50 mg zinc (220 mg) Capsule 220 mg PO QDAY Qty: 30 0RF hydrocodone-acetaminophen 5-325 mg tablet 1 tab PO Q6H MDD 4 PRN (Reason: pain (scale score 7-10)) Qty: 15 0RF Continued metformin 1,000 mg tablet 1,000 mg PO BID Januvia 100 mg tablet 100 mg PO QDAY Jardiance 25 mg tablet 25 mg PO QDAY lisinopril 5 mg tablet 5 mg PO QDAY Referrals: Levi Olsen MD [Primary Care Provider, Family Practice] Camila Lewis MD [Physician, General Surgery] Patient/Caregiver Discharge Instructions Discharge Activity: activity as tolerated Print Language: Lithuanian Activity Restrictions/Additional Instructions: May shower in 24 hours. Keep incision clean and dry. Wear abdominal binder at all times. Avoid lifting, straining, pulling or pushing for 8 weeks. May take over the counter laxatives if no bowel movement in 2 days. Follow up with Dr. Lewis in 2 weeks, call [phone] for an appointment. Continue soft diet for 1 week, then advance diet as tolerated. Stand Alone Forms: Renae Award Info., Patient Portal Info Letter Discharge Order Discharge Orders: Discharge (Routine); Ordered 04/24/25 Ordered By: Calin Olsen Quality Discharge Quality Measures VTE prophylaxis
--- NOTE | 2025-04-24 10:25 | PC.NURSE ---
Dr. Lewis in to see pt. TERESA drain removed by MD @ bedside. Pt tolerated well.
[2025-04-24] MEDS: ACETAMINOPHEN 325 MG TABLET 650 MG PO (10:26)
--- NOTE | 2025-04-24 10:33 | PD.SURPROG ---
Documentation for date of: 04/24/25 Subjective Subjective Brief History: Narrative: Patient is seen and examined. She is feeling much better. She is tolerating soft diet without nausea or vomiting and having bowel movements Exam Vital Signs Temp Pulse Resp BP Pulse Ox O2 Del Method O2 Flow Rate 97.0 F 101 H 18 100/75 94 L Nasal Cannula 2 04/24/25 08:00 04/24/25 08:00 04/24/25 08:00 04/24/25 08:00 04/24/25 08:00 04/24/25 08:00 04/24/25 08:00 Constitutional Constitutional: no acute distress Routine Abdominal Exam Comments: Abdomen is soft and nondistended. Incision is clean, dry and intact. TERESA drain with very minimal output Assessment & Plan Assessment Additional comments: Postop day #3 status post exploratory laparotomy with lysis of adhesions and incidental appendectomy Plan May discharge home PROCEDURES: Procedures Exploratory laparotomy, lysis of adhesions Incidental appendectomy
[2025-04-24 12:00] VITALS: BP 112/76; PULSE 102; PULSE 93; RESP 18; TEMP 36.3; O2SAT 94
== END 2025-04-24 13:58 | disposition home or self-care (01) | DRG 224 ==
LOC: SERX 04-21 01:38 → SERHOLD 04-21 03:13 → S3SX 04-21 04:01
PROVIDERS: Surgery; Admitting Provider Student in an Organized Health Care Education/Training Program; Emergency Provider Emergency Medicine; PCP Family Medicine; Visit Provider Internal Medicine
PROC: (CPT 49000; principal; 2025-04-21 11:00)
DX: K42.0 Umbilical hernia with obstruction, without gangrene (principal); I10 Essential (primary) hypertension; E11.65 Type 2 diabetes mellitus with hyperglycemia; K57.32 Diverticulitis of large intestine without perforation or abscess without bleeding; K80.20 Calculus of gallbladder without cholecystitis without obstruction; R09.02 Hypoxemia; E87.20 Acidosis, unspecified; Z79.4 Long term (current) use of insulin; K66.0 Peritoneal adhesions (postprocedural) (postinfection); D72.829 Elevated white blood cell count, unspecified
CPT/HCPCS: 36415; 36600; 74177; 76705; 80048; 80053; 80061; 80069; 81001; 82010; 82150; 82248; 82803; 83036; 83605; 83690; 83735; 84145; 84443; 85025; 85610; 85652; 86140; 87040; 87635; 93225; 96361; 96365; 96375; 99284; A4649; J0131; J0690; J0696; J1100; J1815; J1885; J2250; J2270; J2371; J2405; J2470; J2543; J2704; J3010; J3490; J7030; Q9967; A9270; J1836